=== PATIENT | female | born 1990 | race Caucasian/White ===

== ENCOUNTER 2020-11-13 13:35 | Outpatient (REF) | payer OTHER, SELFPAY ==
[2020-11-14 01:36] LABS: CT PCR NOT DETECTED (Not Detect.); NG PCR NOT DETECTED (Not Detect.)
[2020-11-14 12:06] LABS: BV Int Neg Control Negative (Negative); BV Int Pos Control Positive (Positive)
== END 2020-11-13 13:36 | disposition home or self-care (01) ==
LOC: HO.LAB 13:35
PROVIDERS: Visit Provider Obstetrics & Gynecology
DX: R68.82 Decreased libido (principal); N89.8 Other specified noninflammatory disorders of vagina
CPT/HCPCS: 87480; 87491; 87510; 87591; 87660; 99212

== ENCOUNTER 2021-01-29 19:31 | Outpatient (REF) | payer OTHER, SELFPAY ==
[2021-01-29 21:22] LABS: Influenza A PCR NEGATIVE (Negative); Influenza B PCR NEGATIVE (Negative); Resp Syncy Virus RNA Qual PCR NEGATIVE (Negative); SARS COV2 PCR INHOUSE NEGATIVE (Negative)
== END 2021-01-29 19:32 | disposition home or self-care (01) ==
LOC: HO.LNP 19:31
PROVIDERS: Visit Provider Family Medicine
DX: Z20.822 Contact with and (suspected) exposure to COVID-19 (principal); R05 Cough
CPT/HCPCS: 0241U

== ENCOUNTER 2021-02-09 16:08 | Outpatient (REF) | payer OTHER, SELFPAY ==
--- NOTE | ~2021-02-09 | XR_ITS ---
EXAMINATION: XR CHEST CLINICAL INFORMATION: Cough COMPARISON: December 13, 2018 TECHNIQUE: 2 views of the chest were obtained. FINDINGS: No significant abnormality is noted involving the heart, lungs, mediastinum, bony thorax or soft tissues. XR/XR chest 2V IMPRESSION: No acute disease.
== END 2021-02-09 16:09 | disposition home or self-care (01) ==
LOC: HO.XRAY 16:08
PROVIDERS: Internal Medicine; Absent Provider Internal Medicine; PCP Internal Medicine; Visit Provider Family Medicine
DX: Z20.822 Contact with and (suspected) exposure to COVID-19 (principal); R05 Cough
CPT/HCPCS: 71046; U0003; U0005

== ENCOUNTER 2021-03-26 12:18 | Outpatient (REF) | payer OTHER, SELFPAY | END 2021-03-26 12:19 | disposition home or self-care (01) | LOC: HO.LAB 12:18 | PROVIDERS: Visit Provider Hospitalist | DX: Z20.822 Contact with and (suspected) exposure to COVID-19 (principal); R51.9 Headache, unspecified; R09.81 Nasal congestion; J45.20 Mild intermittent asthma, uncomplicated | CPT/HCPCS: U0003; U0005 ==

== ENCOUNTER 2021-10-03 14:06 | Outpatient (REF) | payer OTHER, SELFPAY ==
[2021-10-04 05:52] LABS: HBS Num1 36.61 mIU/mL (0-7.99); HBc Num1 0.23 S/CO (0.00-0.79); HBsAGNum1 0.22 S/CO (0.00-0.99); HIV AB/AG Nonreactive (Nonreactive); HIV Num 1 0.09 S/CO (0.00-0.99); Hepatitis B Core Antibody Nonreactive (Nonreactive); Hepatitis B Surface Antigen Negative (Negative); ~Hepatitis B Surface Antibody REACTIVE (Nonreactive)
[2021-10-04 05:54] LABS: ~Hepatitis C Antibody Nonreactive (Nonreactive)
[2021-10-04 06:28] LABS: CT PCR NOT DETECTED (Not Detect.); NG PCR NOT DETECTED (Not Detect.)
== END 2021-10-03 14:07 | disposition home or self-care (01) ==
LOC: HO.LAB 14:06
PROVIDERS: PCP Internal Medicine; Visit Provider Hospitalist
DX: Z11.4 Encounter for screening for human immunodeficiency virus [HIV] (principal); Z11.3 Encounter for screening for infections with a predominantly sexual mode of transmission; Z71.1 Person with feared health complaint in whom no diagnosis is made
CPT/HCPCS: 36415; 86704; 86706; 86803; 87086; 87340; 87389; 87491; 87591

== ENCOUNTER 2021-10-09 15:13 | Outpatient (REF) | payer OTHER, SELFPAY ==
[2021-10-09 16:04] LABS: Basophils Percent Auto 0.3 % (0-2); Eosinophils Absolute Auto 0.1 X10*3/uL (0.0-0.4); Hematocrit 41.2 % (37.0-47.0); Hemoglobin 13.6 g/dl (12.0-16.0); Imm Gran Abs Auto 0.03 X10*3/uL (0.00-0.03); Imm Gran Pct Auto 0.4 % (0.0-0.4); Lymphocytes Absolute Auto 2.5 X10*3/uL (1.2-4.9); Lymphocytes Percent Auto 31.8 % (20-40); MANUAL DIFF FLAG NO; Mean Corpuscular Hemoglobin 29.3 pg (27.0-33.0); Mean Corpuscular Volume 88.8 fL (80.0-98.0); Mean Platelet Volume 10.8 fL (9.4-12.3); Monocytes Absolute Auto 0.5 X10*3/uL (0.1-1.2); Monocytes Percent Auto 6.1 % (2-11); Neutrophils Absolute Auto 4.7 x10*3/uL (2.0-8.3); Neutrophils Percent Auto 60.4 % (45-73); Platelet Count 248 X10*3/uL (160-400); Red Blood Count 4.64 X10*6/uL (4.20-5.50); White Blood Count 7.8 X10*3/uL (4.8-10.8)
[2021-10-09 16:42] LABS: Alanine Aminotransferase 13 U/L (0-31); Albumin Level 4.3 g/dL (3.5-5.0); Alkaline Phosphatase 42 U/L (39-117); Anion Gap 11 (12-20); Aspartate Amino Transferase 13 U/L (5-31); Bilirubin Total 1.3 mg/dL (0.0-1.0); Blood Urea Nitrogen 13 mg/dL (9-16); Calcium 9.3 mg/dL (8.4-10.2); Carbon Dioxide 27 mmol/L (22-29); Chloride 105 mmol/L (96-108); Cholesterol 151 mg/dL; Estimated Glomerular Filt Rate > 60; Glucose Fasting 82 mg/dL (60-99); HDL Cholesterol 54 mg/dL; LDL Cholesterol Calculated 83 mg/dl; Potassium 4.3 mmol/L (3.3-5.1); Sodium 139 mmol/L (135-145); Triglycerides 70 mg/dL
[2021-10-09 17:01] LABS: TSH reflex Free T4 1.66 uIU/mL (0.32-4.0)
[2021-10-09 17:06] LABS: Folate 11.7 ng/mL (> or = 4.0); Vitamin B12 489 pg/mL (200-900)
[2021-10-13 16:57] LABS: Vitamin D 25-OH, D2 <4 ng/mL; Vitamin D 25-OH, D3 33 ng/mL; Vitamin D 25-OH, Total 33 ng/mL (30-100)
== END 2021-10-09 15:14 | disposition home or self-care (01) ==
LOC: HO.LAB 15:13
PROVIDERS: PCP Internal Medicine; Visit Provider Internal Medicine
DX: Z00.00 Encounter for general adult medical examination without abnormal findings (principal); E55.9 Vitamin D deficiency, unspecified; E78.5 Hyperlipidemia, unspecified; R53.82 Chronic fatigue, unspecified
CPT/HCPCS: 36415; 80053; 80061; 82306; 82607; 82746; 84443; 85025

== ENCOUNTER 2021-12-18 13:57 | Outpatient (REF) | payer OTHER, SELFPAY | END 2021-12-18 13:58 | disposition home or self-care (01) | LOC: HO.LNP 13:57 | PROVIDERS: Visit Provider Hospitalist | DX: J02.8 Acute pharyngitis due to other specified organisms (principal); B97.89 Other viral agents as the cause of diseases classified elsewhere; Z20.822 Contact with and (suspected) exposure to COVID-19 | CPT/HCPCS: U0003; U0005 ==

== ENCOUNTER 2021-12-25 12:35 | Outpatient (REF) | payer OTHER, SELFPAY ==
--- NOTE | ~2021-12-25 | XR_ITS ---
EXAMINATION: XR CHEST CLINICAL INFORMATION: Chest pain COMPARISON: None TECHNIQUE: 2 views of the chest were obtained. FINDINGS: No significant abnormality is noted involving the heart, lungs, mediastinum, bony thorax or soft tissues. XR/XR chest 2V IMPRESSION: Unremarkable chest examination.
== END 2021-12-25 12:36 | disposition home or self-care (01) ==
LOC: HO.XRAY 12:35
PROVIDERS: PCP Internal Medicine; Visit Provider Family Medicine
DX: R05.9 Cough, unspecified (principal); R07.9 Chest pain, unspecified; R09.89 Other specified symptoms and signs involving the circulatory and respiratory systems
CPT/HCPCS: 71046

== ENCOUNTER 2022-01-02 08:48 | Outpatient (REF) | payer OTHER, SELFPAY ==
--- NOTE | ~2022-01-02 | XR_ITS ---
EXAMINATION: XR CHEST CLINICAL INFORMATION: Upper respiratory infection COMPARISON: December 25, 2021 TECHNIQUE: 2 views of the chest were obtained. FINDINGS: No significant abnormality is noted involving the heart, lungs, mediastinum, bony thorax or soft tissues. XR/XR chest 2V IMPRESSION: No acute disease.
[2022-01-02 11:17] LABS: HBc Num1 0.08 S/CO (0.00-0.79); HIV AB/AG Nonreactive (Nonreactive); HIV Num 1 0.15 S/CO (0.00-0.99); Hepatitis B Core Antibody Nonreactive (Nonreactive); ~HepC Num1 0.21 S/CO (0.00-0.79); ~Hepatitis C Antibody Nonreactive (Nonreactive)
[2022-01-02 11:22] LABS: Syphilis Screen Nonreactive (Nonreactive)
[2022-01-02 14:06] LABS: CT PCR NOT DETECTED (Not Detect.); NG PCR NOT DETECTED (Not Detect.)
[2022-01-03 13:40] LABS: BV Int Neg Control Negative (Negative); BV Int Pos Control Positive (Positive)
[2022-01-09 19:06] LABS: HPV mRNA E6/E7 rflx Not Detected (Not Detected)
== END 2022-01-02 08:49 | disposition home or self-care (01) ==
LOC: HO.LAB 08:48
PROVIDERS: Absent Provider Internal Medicine; PCP Internal Medicine; Visit Provider Advanced Practice Midwife
DX: Z01.419 Encounter for gynecological examination (general) (routine) without abnormal findings (principal); N92.0 Excessive and frequent menstruation with regular cycle; Z11.3 Encounter for screening for infections with a predominantly sexual mode of transmission; Z11.8 Encounter for screening for other infectious and parasitic diseases; Z11.4 Encounter for screening for human immunodeficiency virus [HIV]; Z11.51 Encounter for screening for human papillomavirus (HPV); Z11.59 Encounter for screening for other viral diseases; J06.9 Acute upper respiratory infection, unspecified
CPT/HCPCS: 36415; 71046; 86704; 86780; 86803; 87389; 87480; 87491; 87510; 87591; 87624; 87660; 88142

== ENCOUNTER → 2022-01-24 09:45 | Outpatient (BNVA) | payer OTHER, SELFPAY | PROVIDERS: PCP Internal Medicine; Visit Provider Internal Medicine Pulmonary Disease | DX: R05.3 Chronic cough (principal); J02.9 Acute pharyngitis, unspecified | CPT/HCPCS: 99202 ==

== ENCOUNTER 2022-02-05 12:59 | Outpatient (REF) | payer OTHER, SELFPAY ==
--- NOTE | ~2022-02-05 | US_ITS ---
EXAMINATION: US PELVIS CLINICAL INFORMATION: Excessive and frequent menstruation with regular cycle. COMPARISON: None TECHNIQUE: Ultrasound of the pelvis is performed using both transabdominal and transvaginal transducers along with Doppler. Transvaginal imaging is performed due to inadequate visualization transabdominally. FINDINGS: Uterus: The uterus is anteverted, anteflexed and measures 10.36 cm in length, 5.38 cm in AP and 7.01 cm in transverse dimension. The double wall endometrial thickness is 0.90 cm. The uterus is smooth in contour and has normal myometrial echogenicity. There is a solitary hypoechoic lesion in the mid posterior body of uterus measuring 0.26 x 0.31 x 0.49 cm suggestive of small fibroid. Adnexa: Both ovaries are visualized. There is normal color flow to the adnexa. There is no ovarian torsion. There is no pelvic ascites or fluid collection. Right ovary measures 3.29 x 2.67 x 2.68 cm and volume 12.33 mL. There is anechoic irregular-shaped cyst measuring 1.4 x 1.6 x 1.5 cm. Left ovary measures 2.69 x 1.87 x 2.18 cm, volume 5.74 mL US/US pelvic and transvaginal IMPRESSION: Small uterine fibroid; otherwise, unremarkable uterus and cervix. Small corpus luteal cyst right ovary. There is no free fluid in the cul-de-sac.
== END 2022-02-05 13:00 | disposition home or self-care (01) ==
LOC: HO.HMGCX 12:59
PROVIDERS: PCP Internal Medicine; Visit Provider Advanced Practice Midwife
DX: N92.0 Excessive and frequent menstruation with regular cycle (principal)
CPT/HCPCS: 76830; 76856

== ENCOUNTER → 2022-02-22 13:20 | Outpatient (BNVA) | payer OTHER, SELFPAY | PROVIDERS: PCP Internal Medicine; Visit Provider Advanced Practice Midwife | DX: Z71.2 Person consulting for explanation of examination or test findings (principal); N83.201 Unspecified ovarian cyst, right side; N92.0 Excessive and frequent menstruation with regular cycle; N94.10 Unspecified dyspareunia | CPT/HCPCS: 99212 ==

== ENCOUNTER 2022-02-26 09:30 | Outpatient (REF) | payer OTHER, SELFPAY ==
[2022-02-26 15:14] LABS: CT PCR NOT DETECTED (Not Detect.); NG PCR NOT DETECTED (Not Detect.)
[2022-02-27 13:13] LABS: BV Int Neg Control Negative (Negative); BV Int Pos Control Positive (Positive)
== END 2022-02-26 09:31 | disposition home or self-care (01) ==
LOC: HO.LAB 09:30
PROVIDERS: Visit Provider Advanced Practice Midwife
DX: R10.2 Pelvic and perineal pain (principal); N94.10 Unspecified dyspareunia; Z87.19 Personal history of other diseases of the digestive system
CPT/HCPCS: 87480; 87491; 87510; 87591; 87660; 99212

== ENCOUNTER 2022-03-08 07:53 | Outpatient (REF) | payer OTHER, SELFPAY ==
--- NOTE | ~2022-03-08 | CT_ITS ---
EXAMINATION: CT ABDOMEN AND PELVIS WITH CONTRAST CLINICAL INFORMATION: Unspecified dyspareunia. COMPARISON: None TECHNIQUE: Multidetector volumetric images were obtained from the superior aspect of the liver through the pubic symphysis following administration 85 mL of Omnipaque 350 intravenous contrast. Sagittal and coronal reformatted images were obtained on the technologist's workstation. Oral contrast: No. This CT examination was performed using dose optimization techniques as appropriate, variously including the following: *Automated exposure control *Adjustment of mA and/or kV according to patient size (this includes techniques or standardized protocols for targeted exams where dose is matched to indication/reason for exam; i.e. extremities or head) *Use of iterative reconstruction technique DLP: 268 mGy-cm FINDINGS: LUNG BASES: The visualized lung bases are unremarkable. LIVER, GALLBLADDER, AND BILIARY TREE: The liver is normal in size, shape, and attenuation. No focal hepatic lesion or biliary ductal dilatation is present. The gallbladder is unremarkable with no evidence of radiopaque gallstones, gallbladder wall thickening, or obvious pericholecystic inflammatory changes. PANCREAS: Unremarkable. SPLEEN: Unremarkable. ADRENAL GLANDS: Unremarkable. KIDNEYS AND URETERS: The kidneys are normal in size, shape, and attenuation. No hydronephrosis, hydroureter, or calculi seen. No perinephric stranding. There is a 1.5 cm and a 9 mm hypodense lesion in the upper pole of left kidney measuring 28 Hounsfield units, likely complex cysts. There are 5 mm cysts in the lower pole of left kidney. BLADDER: Unremarkable. GASTROINTESTINAL TRACT: There is scattered stool, gas and oral contrast seen throughout the colon without distention. The small bowel loops are normal caliber. The stomach is nondistended ABDOMINAL WALL: No significant hernia is appreciated. LYMPH NODES: Normal. VASCULAR: Unremarkable. PELVIC VISCERA: The uterus is anteverted. No adnexal mass or free fluid seen. OSSEOUS STRUCTURES: Unremarkable. CT/CT abdomen pelvis w IV con IMPRESSION: No significant abnormality is seen in the abdomen and pelvis. Moderate constipation. Fleischner guidelines were followed.
[2022-03-08] MEDS: iohexoL 350 MG/ML 100 ML INFUS..BTL IV (10:05)
[2022-03-08] MEDS: Barium Sulfate Oral (Berry) 450 ML ORAL.SUSP 900 ML PO (10:07)
== END 2022-03-08 07:54 | disposition home or self-care (01) ==
LOC: HO.CT 07:53
PROVIDERS: Visit Provider Advanced Practice Midwife
DX: R10.2 Pelvic and perineal pain (principal); R10.9 Unspecified abdominal pain; N94.10 Unspecified dyspareunia; Z87.19 Personal history of other diseases of the digestive system
CPT/HCPCS: 74177; Q9967

== ENCOUNTER 2022-03-20 14:52 | Outpatient (REF) | payer OTHER, SELFPAY ==
[2022-03-20 17:40] LABS: Appearance Urine Turbid; Color Urine Yellow; Glucose Urine UA Negative (Negative); Leukocyte Esterase Urine Small (1+) (Negative); Nitrite Urine Negative (Negative); PH 5.5 (5.0-9.0); Specific Gravity - Urine 1.025 (1.005-1.025); UMIC TRIGGER UACC YES; Urine Blood Moderate (2+) (Negative); Urine Ketones Negative (Negative); Urine Protein Negative (Neg-Trace)
[2022-03-20 17:57] LABS: Bacteria Urine 2+ (None Seen); Calcium Oxalate Crystals Urine Present; Hyaline Casts Urine 0-2 /LPF (0-2); UACC Culture Trigger YES
== END 2022-03-20 14:53 | disposition home or self-care (01) ==
LOC: HO.LAB 14:52
PROVIDERS: Advanced Practice Midwife; Visit Provider Nurse Practitioner Family
DX: R35.0 Frequency of micturition (principal); R30.0 Dysuria
CPT/HCPCS: 81001; 87086

== ENCOUNTER 2022-04-03 16:40 | Outpatient (REF) | payer OTHER, SELFPAY ==
--- NOTE | ~2022-04-03 | XR_ITS ---
EXAMINATION: XR LUMBOSACRAL SPINE CLINICAL INFORMATION: Pain COMPARISON: None TECHNIQUE: Three views of the lumbosacral spine. FINDINGS: The vertebral bodies and posterior elements are normal. The disc spaces are preserved and the vertebral alignment is normal. The paraspinal soft tissues are normal. XR/XR lumbar spine 2-3V IMPRESSION: Unremarkable examination.
--- NOTE | ~2022-04-03 | XR_ITS ---
EXAMINATION: BILATERAL HIP X-RAY CLINICAL INFORMATION: Pain COMPARISON: None TECHNIQUE: 2 views of each hip FINDINGS: Right: Bone alignment is normal. No fracture or dislocation is seen. The joint space is normal soft tissues are normal. Left: Bone alignment is normal. No fracture or dislocation is seen. The joint space is normal. Soft tissues are normal. XR/XR hip LT min 2V IMPRESSION: Unremarkable exam.
--- NOTE | ~2022-04-03 | XR_ITS ---
EXAMINATION: BILATERAL HIP X-RAY CLINICAL INFORMATION: Pain COMPARISON: None TECHNIQUE: 2 views of each hip FINDINGS: Right: Bone alignment is normal. No fracture or dislocation is seen. The joint space is normal soft tissues are normal. Left: Bone alignment is normal. No fracture or dislocation is seen. The joint space is normal. Soft tissues are normal. XR/XR hip RT min 2V IMPRESSION: Unremarkable exam.
== END 2022-04-03 16:41 | disposition home or self-care (01) ==
LOC: HO.XRAY 16:40
PROVIDERS: PCP Internal Medicine; Visit Provider Internal Medicine
DX: M25.551 Pain in right hip (principal); M25.552 Pain in left hip; M54.50 Low back pain, unspecified; R39.89 Other symptoms and signs involving the genitourinary system; R31.0 Gross hematuria
CPT/HCPCS: 72100; 73502

== ENCOUNTER 2022-04-16 11:18 | Outpatient (REF) | payer OTHER, SELFPAY ==
--- NOTE | ~2022-04-16 | US_ITS ---
EXAMINATION: US PELVIS CLINICAL INFORMATION: Unspecified ovarian cyst right side, last menstrual period 04/11/2022. COMPARISON: 02/05/2022 TECHNIQUE: Ultrasound of the pelvis is performed using both transabdominal and transvaginal transducers along with Doppler. Transvaginal imaging is performed due to inadequate visualization transabdominally. FINDINGS: The uterus is heterogeneous and measures 11.6 x 4.8 x 7.0 cm. 1.0 x 0.8 x 1.2 cm fibroid. No significant free fluid. Right ovary measures 3.3 x 1.7 x 3.0 cm, volume 8.8 mL. 1.3 x 0.5 x 0.8 cm right ovarian cyst, possibly a corpus luteum. Previous exam demonstrated a 1.4 x 1.6 x 1.5 cm irregularly-shaped right ovarian cyst. Left ovary measures 3.4 x 2.2 x 3.0 cm, volume 11.7 mL. 1.5 x 1.0 x 1.5 cm left ovarian cyst is likely simple and likely physiologic. Small amount of fluid within the endometrial cavity. Endometrial thickness 0.6 cm. Possible endometrial polyp difficult to characterize. US/US pelvic and transvaginal IMPRESSION: A 1.2 cm posterior fibroid was not previously identified. Bilateral ovarian cysts may be physiologic. Small amount of fluid within the endometrial cavity and possible endometrial polyp which was difficult to characterize. Recommend followup ultrasound in 6-8 weeks.
== END 2022-04-16 11:19 | disposition home or self-care (01) ==
LOC: HO.US 11:18
PROVIDERS: Visit Provider Advanced Practice Midwife
DX: N83.201 Unspecified ovarian cyst, right side (principal)
CPT/HCPCS: 76830; 76856

== ENCOUNTER → 2022-05-02 08:59 | Outpatient (BNVA) | payer OTHER, SELFPAY | PROVIDERS: PCP Internal Medicine; Visit Provider Advanced Practice Midwife | DX: Z71.2 Person consulting for explanation of examination or test findings (principal); R10.2 Pelvic and perineal pain; R93.89 Abnormal findings on diagnostic imaging of other specified body structures | CPT/HCPCS: 99212 ==

== ENCOUNTER 2022-06-10 | Outpatient (REF) | payer OTHER, SELFPAY | END 2022-06-10 00:01 | disposition home or self-care (01) | LOC: CF | PROVIDERS: Visit Provider Urology | DX: N28.1 Cyst of kidney, acquired (principal) | CPT/HCPCS: 99202 ==

== ENCOUNTER → 2022-06-27 12:11 | Outpatient (BNVA) | payer OTHER, SELFPAY | PROVIDERS: PCP Internal Medicine; Referring Provider Internal Medicine; Visit Provider Internal Medicine | DX: R00.2 Palpitations (principal); R06.02 Shortness of breath; R20.9 Unspecified disturbances of skin sensation; I10 Essential (primary) hypertension | CPT/HCPCS: 93005; 99202 ==

== ENCOUNTER → 2022-07-16 14:01 | Outpatient (REF) | payer OTHER, SELFPAY ==
--- NOTE | 2022-07-16 14:05 | CA_ITS ---
Transthoracic Echocardiogram Patient (Last, First, Middle): Julieth Alcala L Gender: Female Date of : 1990 Age: 32 Procedure Date: 07/16/2022 Procedure Type: Transthoracic Echocardiogram Location: OP Height: 160.02 cm Weight: 48.99 kg BSA: 1.49 m2 Heart Rate: bpm BP: 122 / 60 mmHg Crude Tester: Referring MD: Mykel Guzman MD Symptoms: R06.02 - Shortness of breath Study Quality: Good ECG Rhythm: Sinus Conclusions: - The left ventricular systolic function is normal. The calculated ejection fraction is 65% by biplane method. - No obvious valvular pathology seen on this study. Findings Left Ventricle Normal left ventricular cavity size. There is normal left ventricular wall thickness. The left ventricular systolic function is normal. The calculated ejection fraction is 65% by biplane method. There is no evidence of regional wall motion abnormalities. Diastolic function is normal for age. Right Ventricle Normal right ventricular cavity size and systolic function. Atria Both atria are normal in size. Aortic Valve There is a normal trileaflet aortic valve. There is no aortic valve regurgitation. Mitral Valve The mitral valve appears normal. There is no mitral valve regurgitation. There is no mitral valve stenosis. Pulmonic Valve The pulmonic valve is likely normal. Tricuspid Valve There is trace tricuspid valve regurgitation. There is no evidence of pulmonary hypertension. Great Vessels The asc aorta is normal in size. Venous The inferior vena cava is normal in size and collapses greater than 50% with inspiration. Pericardium/Pleural There is no evidence of pericardial effusion. Prior Study Comparison No prior study available for comparison. Recommendations, Care & Conclusions No obvious valvular pathology seen on this study. Measurements 2D Linear Measurements IVSd: 0.81 0.6-0.9/0.6-1.0 cm LVIDd: 3.92 3.9-5.3/4.2-5.9 cm LVIDd Index: 2.63 2.4-3.2/2.2-3.1 cm/m2 LVIDs: 2.64 2.0-3.6 cm LVPWd: 0.84 0.7-1.1 cm Ao Root: 2.80 2.1-3.5 cm LA Diam: 2.20 2.7-3.8/3.0-4.0 cm LAIDs Index: 1.48 1.5-2.3 cm/m2 LV Mass: 117.27 67-162/88-224 g LV Mass Index: 78.70 43-95/49-115 g/m2 LVOT Diam: 1.90 3.0+(-)1.3 cm 2D Systolic Function EF 4C: 62.50 >55% EF 2C: 70.30 >55% EF BiP: 64.60 >55% Mitral Valve MV Pk E: 0.92 MV PK A: 0.68 MV Decel Time: 142.00 E/A: 1.30 E'Lateral: 16.20 E'Medial: 12.60 E/E' Med: 7.30 E/E' Lat: 5.70 PHT: 42.00 MVA PHT: 5.24 Decel Baldwin: 6.46 Aortic Valve AoV Pk Suman: 1.38 AoV Mn Suman: 0.90 AoV VTI: 0.28 AoV Pk Grad: 8.00 Aov Mn Grad: 4.00 BONNIE Cont.VTI: 2.11 LVOT LVOT Pk Suman: 0.95 LVOT Mn Suman: 0.64 LVOT VTI: 0.21 LVOT Pk Grad: 4.00 LVOT Mn Grad: 2.00 LVOT Diam: 1.90 LVOT Area: 2.84 Diastolic Function MV Pk E: 0.92 MV Pk A: 0.68 E/A: 1.30 E'Medial: 12.60 E/E' Med: 7.30 E' Laterial: 16.20 E/E' Lat: 5.70 Right Ventricle TAPSE (mm): 19.00 TVS' Suman: 16.00 Tricuspid Valve TR Pk Suman: 2.38 TR Pk Grad: 23.00 Great Vessels Aorta Ao Root-2D: 2.80 2.0-3.7 cm Ao Asc: 2.50 2.1-3.4 cm Pulmonary Valve PV Pk Suman: 1.10 Peak PV Grad: 5.00 Updated in Other Vendor System with Status of Final Mykel Guzman MD electronically signed on 07/17/2022 8:57:29 AM with status of Final
--- NOTE | 2022-07-16 14:05 | HM_ITS ---
* Total monitoring time 3 days. * Underlying rhythm is sinus. Average ventricular rate 93/Min. Range 63 to 145/Min. * About 40% the time, rate > 100/Min. * Occasional PVCs. 2 couplets. Minimal burden. * No significant pauses or AV blocks. * Several symptoms documented include cannot breathe, racing, dizzy, palpitations, numb fingers, cold, tingling, can't take a breath at different times. Mostly correlating with sinus tachycardia. Sometimes with isolated PVCs. MTDD
== END ==
LOC: HO.CARD 14:01
PROVIDERS: Visit Provider Internal Medicine
DX: R06.02 Shortness of breath (principal); R00.2 Palpitations
CPT/HCPCS: 93242; 93306

== ENCOUNTER 2022-07-17 14:51 | Outpatient (REF) | payer OTHER, SELFPAY ==
--- NOTE | ~2022-07-17 | US_ITS ---
EXAMINATION: US RETROPERITONEAL LIMITED (RENAL ONLY) CLINICAL INFORMATION: Essential hypertension. COMPARISON: None. TECHNIQUE: Routine grayscale imaging of kidneys was performed. In addition renal Doppler imaging of both kidneys was performed as well. FINDINGS: RIGHT KIDNEY: 10.3 x 5.8 x 4.7 cm (SAG x AP x TRV). The kidney is normal in size, contour, and echogenicity. Renal cortical thickness is normal. No calculi or focal parenchymal lesions. No hydronephrosis. LEFT KIDNEY: 10.1 x 6.9 x 5.4 cm cm (SAG x AP x TRV). The kidney is normal in size, contour, and echogenicity. Renal cortical thickness is normal. No calculi or focal parenchymal lesions. No hydronephrosis. There are multiple simple anechoic cyst. Upper pole cyst measures 0.8 x 0.8 x 0.1 cm and 0.8 x 0.1 x 0.8 cm. Midpole cyst measures 0.6 x 0.5 x 0.5 cm. RENAL DOPPLER IMAGING: RIGHT KIDNEY: Peak systolic renal velocity proximal segment measures 120 cm/sec, midsegment measures 136 cm/sec, distal segment measures 93.3 cm/sec. Renal aortic ratio measures 1.4. Average resistive index is less than 0.63. LEFT KIDNEY: Peak systolic renal velocity proximal segment measures 128 cm/sec, midsegment measures 10 8 cm/sec and distal segment measures 98.4 cm/sec. Renal aortic ratio measures 1.3. Average resistive index measures 0.60 and less. Mid aorta velocity measures 95.4 cm/sec. US/US renal BI IMPRESSION: Multiple left renal cysts. No echogenic renal calculi or hydronephrosis. There is no significant renal artery stenosis in either kidney seen on renal Doppler exam.
--- NOTE | ~2022-07-17 | US_ITS ---
EXAMINATION: US RETROPERITONEAL LIMITED (RENAL ONLY) CLINICAL INFORMATION: Essential hypertension. COMPARISON: None. TECHNIQUE: Routine grayscale imaging of kidneys was performed. In addition renal Doppler imaging of both kidneys was performed as well. FINDINGS: RIGHT KIDNEY: 10.3 x 5.8 x 4.7 cm (SAG x AP x TRV). The kidney is normal in size, contour, and echogenicity. Renal cortical thickness is normal. No calculi or focal parenchymal lesions. No hydronephrosis. LEFT KIDNEY: 10.1 x 6.9 x 5.4 cm cm (SAG x AP x TRV). The kidney is normal in size, contour, and echogenicity. Renal cortical thickness is normal. No calculi or focal parenchymal lesions. No hydronephrosis. There are multiple simple anechoic cyst. Upper pole cyst measures 0.8 x 0.8 x 0.1 cm and 0.8 x 0.1 x 0.8 cm. Midpole cyst measures 0.6 x 0.5 x 0.5 cm. RENAL DOPPLER IMAGING: RIGHT KIDNEY: Peak systolic renal velocity proximal segment measures 120 cm/sec, midsegment measures 136 cm/sec, distal segment measures 93.3 cm/sec. Renal aortic ratio measures 1.4. Average resistive index is less than 0.63. LEFT KIDNEY: Peak systolic renal velocity proximal segment measures 128 cm/sec, midsegment measures 10 8 cm/sec and distal segment measures 98.4 cm/sec. Renal aortic ratio measures 1.3. Average resistive index measures 0.60 and less. Mid aorta velocity measures 95.4 cm/sec. US/US renal doppler IMPRESSION: Multiple left renal cysts. No echogenic renal calculi or hydronephrosis. There is no significant renal artery stenosis in either kidney seen on renal Doppler exam.
== END 2022-07-17 14:52 | disposition home or self-care (01) ==
LOC: HO.US 14:51
PROVIDERS: PCP Internal Medicine; Visit Provider Internal Medicine
DX: I70.1 Atherosclerosis of renal artery (principal); I10 Essential (primary) hypertension
CPT/HCPCS: 76775; 93975

== ENCOUNTER 2022-07-19 15:41 | Outpatient (REF) | payer OTHER, SELFPAY ==
[2022-07-19 15:58] LABS: MANUAL DIFF FLAG NO
[2022-07-19 17:07] LABS: Basophils Percent Auto 0.1 % (0-2); Eosinophils Percent Auto 0.3 % (0-4); Hematocrit 40.5 % (37.0-47.0); Hemoglobin 13.5 g/dl (12.0-16.0); Imm Gran Pct Auto 1.3 % (0.0-0.4); Mean Corpuscular HGB Conc 33.3 g/dl (31.0-35.0); Mean Corpuscular Hemoglobin 30.3 pg (27.0-33.0); Mean Platelet Volume 10.7 fL (9.4-12.3); Monocytes Absolute Auto 0.5 X10*3/uL (0.1-1.2); Monocytes Percent Auto 6.1 % (2-11); Neutrophils Absolute Auto 5.1 x10*3/uL (2.0-8.3); Neutrophils Percent Auto 66.2 % (45-73); Platelet Count 273 X10*3/uL (160-400); Red Blood Count 4.45 X10*6/uL (4.20-5.50); Red Cell Distribution Width 12.7 % (11.0-16.0); White Blood Count 7.7 X10*3/uL (4.8-10.8)
[2022-07-19 17:21] LABS: Alanine Aminotransferase 13 U/L (0-31); Albumin Level 4.6 g/dL (3.5-5.0); Alkaline Phosphatase 41 U/L (39-117); Anion Gap 13 (12-20); Aspartate Amino Transferase 14 U/L (5-31); Bilirubin Total 1.6 mg/dL (0.0-1.0); Blood Urea Nitrogen 20 mg/dL (9-16); Calcium 9.6 mg/dL (8.4-10.2); Carbon Dioxide 28 mmol/L (22-29); Chloride 103 mmol/L (96-108); Cholesterol 156 mg/dL; Estimated Glomerular Filt Rate > 60; Glucose Fasting 81 mg/dL (60-99); HDL Cholesterol 58 mg/dL; LDL Cholesterol Calculated 89 mg/dl; Sodium 140 mmol/L (135-145); Total Protein 7.3 g/dL (6.5-8.0); Triglycerides 47 mg/dL
[2022-07-19 17:36] LABS: Thyroid Stimulating Hormone 1.84 uIU/mL (0.32-4.0)
== END 2022-07-19 15:42 | disposition home or self-care (01) ==
LOC: HO.LAB 15:41
PROVIDERS: PCP Internal Medicine; Visit Provider Internal Medicine
DX: R00.2 Palpitations (principal); D64.9 Anemia, unspecified; I10 Essential (primary) hypertension; E78.5 Hyperlipidemia, unspecified
CPT/HCPCS: 36415; 80053; 80061; 84443; 85025

== ENCOUNTER 2022-07-23 13:06 | Outpatient (REF) | payer OTHER, SELFPAY ==
--- NOTE | ~2022-07-23 | US_ITS ---
EXAMINATION: US PELVIC AND TRANSVAGINAL CLINICAL INFORMATION: Pelvic pain. Possible endo-polyp. COMPARISON: Ultrasound pelvis and transvaginal 04/16/2022. TECHNIQUE: Ultrasound of the pelvis is performed using both transabdominal and transvaginal transducers along with Doppler. Transvaginal imaging is performed due to inadequate visualization transabdominally. FINDINGS: UTERUS: The uterus is anteverted, anteflexed and measures 10.0 x 4.7 x 5.7 cm. The double wall endometrial thickness is 2.0. No endometrial polyp is seen at this time. The uterus is smooth in contour and has normal myometrial echogenicity. There is a hypoechoic lesion in the posterior body of the uterus measuring 0.9 x 0.8 x 1.1 cm. Previously, it measured 1.0 x 0.8 x 1.2 cm. ADNEXA: Both ovaries are visualized. There is normal color flow to the adnexa. There is no ovarian torsion. There is no pelvic ascites or fluid collection. Right ovary measures 3.3 x 2.1 x 2.6 cm and volume 9.4 mL. There is a faintly visualized isoechoic lesion in the right ovary measuring 1.7 x 1.4 x 1.7 cm. It was faintly visualized but not obvious on the previous exam of 04/16/2022. Left ovary measures 3.4 x 2.0 x 2.2 cm and volume 7.8 mL. Previously, it measured 3.4 x 2.2 x 3.0 cm. Incidental finding of echogenic debris within the bladder. Patient has a history of vaginal bleeding/hematuria one week ago. There is a small amount of free fluid in the anterior uterus and left adnexa. Vascular prominence is seen in the left adnexa, question pelvic congestion. US/US pelvic and transvaginal IMPRESSION: 1. Stable uterine fibroid. 2. Faintly visualized isoechoic lesion in the right ovary. Recommend continued followup. 3. Echogenic debris within the urinary bladder but no bladder wall thickening. 4. Small amount of free fluid in the left adnexa and anterior to the uterus. 5. Suspect left pelvic congestion.
== END 2022-07-23 13:07 | disposition home or self-care (01) ==
LOC: HO.US 13:06
PROVIDERS: PCP Internal Medicine; Visit Provider Advanced Practice Midwife
DX: R10.2 Pelvic and perineal pain (principal); R93.89 Abnormal findings on diagnostic imaging of other specified body structures
CPT/HCPCS: 76830; 76856

== ENCOUNTER 2022-07-30 08:25 | Outpatient (REF) | payer OTHER, SELFPAY | END 2022-07-30 08:26 | disposition home or self-care (01) | LOC: HO.LAB 08:25 | PROVIDERS: PCP Internal Medicine; Visit Provider Advanced Practice Midwife | DX: R10.2 Pelvic and perineal pain (principal); Z71.2 Person consulting for explanation of examination or test findings | CPT/HCPCS: 81003; 99212 ==

== ENCOUNTER 2022-07-30 09:00 | Outpatient (REF) | payer OTHER, SELFPAY ==
[2022-07-31 09:22] LABS: CT PCR NOT DETECTED (Not Detect.); NG PCR NOT DETECTED (Not Detect.)
[2022-07-31 11:31] LABS: BV Int Neg Control Negative (Negative); BV Int Pos Control Positive (Positive)
== END 2022-07-30 09:01 | disposition home or self-care (01) ==
LOC: HO.LNP 09:00
PROVIDERS: Visit Provider Advanced Practice Midwife
DX: Z11.3 Encounter for screening for infections with a predominantly sexual mode of transmission (principal); R10.2 Pelvic and perineal pain; N89.8 Other specified noninflammatory disorders of vagina
CPT/HCPCS: 0353U; 87480; 87510; 87660

== ENCOUNTER 2022-09-03 16:02 | Outpatient (REF) | payer OTHER, SELFPAY ==
[2022-09-03 17:33] LABS: Appearance Urine Clear; Color Urine Yellow; Glucose Urine UA Negative (Negative); Leukocyte Esterase Urine Small (1+) (Negative); Nitrite Urine Negative (Negative); PH 5.5 (5.0-9.0); UMIC TRIGGER UACC YES; Urine Blood Small (1+) (Negative); Urine Ketones Negative (Negative); Urine Protein Negative (Neg-Trace)
[2022-09-03 17:44] LABS: Bacteria Urine None Seen (None Seen); Calcium Oxalate Crystals Urine Present; Hyaline Casts Urine 0-2 /LPF (0-2); Other Crystals Urine Present; RBC Urine 0-2 /HPF (0-2); Squamous Epithelial Cell Urine 0-2 /HPF (0-2); UACC Culture Trigger YES; WBC Urine >50 /HPF (0-5)
== END 2022-09-03 16:03 | disposition home or self-care (01) ==
LOC: HO.LAB 16:02
PROVIDERS: PCP Internal Medicine; Visit Provider Internal Medicine
DX: R30.0 Dysuria (principal)
CPT/HCPCS: 81001; 87086; 87088; 87186

== ENCOUNTER → 2022-09-04 09:17 | Outpatient (BNVA) | payer OTHER, SELFPAY | PROVIDERS: PCP Internal Medicine; Referring Provider Internal Medicine; Visit Provider Internal Medicine | DX: R00.2 Palpitations (principal); R06.02 Shortness of breath; R20.9 Unspecified disturbances of skin sensation; I10 Essential (primary) hypertension | CPT/HCPCS: 99212 ==

== ENCOUNTER 2022-09-23 13:07 | Outpatient (REF) | payer OTHER, SELFPAY ==
--- NOTE | ~2022-09-23 | US_ITS ---
EXAMINATION: US PELVIS CLINICAL INFORMATION: Follow up ovarian cyst. COMPARISON: Ultrasound pelvis 07/23/2022 TECHNIQUE: Ultrasound of the pelvis is performed using both transabdominal and transvaginal transducers along with Doppler. Transvaginal imaging is performed due to inadequate visualization transabdominally. FINDINGS: Uterus: The uterus is anteverted and measures 11.2 x 5.7 x 6.8 cm. The double wall endometrial thickness is 13 mm. The uterus is smooth in contour and has normal myometrial echogenicity. A small uterine fibroid seen unchanged measuring about a centimeter in size. Adnexa: Both ovaries are visualized. There is normal color flow to the adnexa. There is no ovarian torsion. There is no pelvic ascites or fluid collection. Right ovary measures 2.8 x 1.7 x 2.4 cm for a volume of 6.0 mL. Again seen is an area in the right ovary which is hypoechoic. The previously seen faintly visualized isoechoic lesion measuring 1.7 cm now measures 1.3 cm, smaller. This is most likely a complex small cyst. No additional follow-up should be necessary. Left ovary measures 3.1 x 2.3 x 2.9 cm for a volume of 10.8 mL and appears unremarkable. US/US pelvic and transvaginal IMPRESSION: The hypoechoic small mass in the right ovary is smaller as described above. No further follow-up should be necessary. A small uterine fibroid is present. No additional follow-up should be necessary.
== END 2022-09-23 13:08 | disposition home or self-care (01) ==
LOC: HO.US 13:07
PROVIDERS: PCP Internal Medicine; Visit Provider Advanced Practice Midwife
DX: N83.9 Noninflammatory disorder of ovary, fallopian tube and broad ligament, unspecified (principal)
CPT/HCPCS: 76830; 76856

== ENCOUNTER → 2022-09-30 09:44 | Outpatient (BNVA) | payer OTHER, SELFPAY | PROVIDERS: PCP Internal Medicine; Visit Provider Advanced Practice Midwife | DX: Z71.2 Person consulting for explanation of examination or test findings (principal); R10.2 Pelvic and perineal pain; G89.29 Other chronic pain | CPT/HCPCS: 99212 ==

== ENCOUNTER → 2022-11-14 10:09 | Outpatient (BNVA) | payer OTHER, SELFPAY | PROVIDERS: PCP Internal Medicine; Visit Provider Obstetrics & Gynecology | DX: N83.299 Other ovarian cyst, unspecified side (principal); R10.31 Right lower quadrant pain | CPT/HCPCS: 81003; 81025; 99212 ==

== ENCOUNTER 2022-12-13 08:28 | Outpatient (REF) | payer OTHER, SELFPAY ==
--- NOTE | ~2022-12-13 | CT_ITS ---
EXAMINATION: CT ABDOMEN AND PELVIS WITH CONTRAST CLINICAL INFORMATION: Right lower quadrant pain COMPARISON: Previous pelvic ultrasounds most recent September [address] of the abdomen and pelvis from March 2022 TECHNIQUE: Multidetector volumetric images were obtained from the superior aspect of the liver through the pubic symphysis following administration 85 mL of Omnipaque 350 intravenous contrast. Sagittal and coronal reformatted images were obtained on the technologist's workstation. Oral contrast: Yes This CT examination was performed using dose optimization techniques as appropriate, variously including the following: *Automated exposure control *Adjustment of mA and/or kV according to patient size (this includes techniques or standardized protocols for targeted exams where dose is matched to indication/reason for exam; i.e. extremities or head) *Use of iterative reconstruction technique DLP: 244 mGy-cm FINDINGS: LUNG BASES: The visualized lung bases are unremarkable. LIVER, GALLBLADDER, AND BILIARY TREE: The liver is normal in size, shape, and attenuation. No focal hepatic lesion or biliary ductal dilatation is present. The gallbladder is unremarkable with no evidence of radiopaque gallstones, gallbladder wall thickening, or obvious pericholecystic inflammatory changes. PANCREAS: Unremarkable. SPLEEN: Unremarkable. ADRENAL GLANDS: Unremarkable. KIDNEYS AND URETERS: The kidneys are normal in size, shape, and attenuation. No hydronephrosis, hydroureter, or calculi seen. No perinephric stranding. Small bilateral low-attenuation renal lesions probably representing cysts. No imaging follow-up recommended. BLADDER: Unremarkable. GASTROINTESTINAL TRACT: The small and large bowel are unremarkable. The appendix is unremarkable. ABDOMINAL WALL: No significant hernia is appreciated. LYMPH NODES: Normal. VASCULAR: Unremarkable. PELVIC VISCERA: Uterus is anteverted and does not appear enlarged. There is heterogeneous appearance /enhancement of the uterus. There are multiple small low-attenuation subcentimeter areas throughout the myometrium. There is a small 5 mm enhancing lesion exophytic to the uterine fundus questionable for a small fibroid. The pelvic vessels appear prominent. There is reflux in the left ovarian vein. This does not appear particularly dilated. The right ovarian vein is not seen/does not appear to reflux. The endometrium does not appear thickened. The ovaries are normal. Trace fluid in the pelvis. OSSEOUS STRUCTURES: Unremarkable. CT/CT abdomen pelvis w IV con IMPRESSION: Heterogeneous appearance/enhancement of the uterus. Appearance is questionable for adenomyomatosis Probable small fundal uterine fibroid. Prominent pelvic vessels/hypervascular appearance. Trace fluid in the pelvis. Pelvic MRI may be helpful. Fleischner guidelines were followed.
[2022-12-13] MEDS: iohexoL 350 MG/ML 100 ML INFUS..BTL 85 ML IV (09:27)
== END 2022-12-13 08:29 | disposition home or self-care (01) ==
LOC: HO.CT 08:28
PROVIDERS: PCP Internal Medicine; Visit Provider Obstetrics & Gynecology
DX: R10.31 Right lower quadrant pain (principal)
CPT/HCPCS: 74177; Q9967

== ENCOUNTER 2022-12-24 11:29 | Outpatient (REF) | payer OTHER, SELFPAY ==
--- NOTE | ~2022-12-24 | US_ITS ---
EXAMINATION: US PELVIS CLINICAL INFORMATION: Ovarian cyst. LMP 12/20/2022 COMPARISON: 09/23/2022 TECHNIQUE: Ultrasound of the pelvis is performed using both transabdominal and transvaginal transducers along with Doppler. Transvaginal imaging is performed due to inadequate visualization transabdominally. FINDINGS: Uterus: The uterus is anteverted and measures 9.1 x 5.2 x 6.5 cm. Uterine echotexture is heterogeneous. Posterior fibroid measures 1.5 x 1.1 x 1.3 cm. The double wall endometrial thickness is 0.7 mm. Adnexa: Right ovary measures 2.7 x 2.2 x 2.7 cm. Left ovary measures 3.1 x 2.0 x 2.5 cm. Prominent right parametrial veins. Small free fluid in the right adnexa. US/US pelvic and transvaginal IMPRESSION: Posterior uterine fibroid. Prominent right parametrial veins.
== END 2022-12-24 11:30 | disposition home or self-care (01) ==
LOC: HO.US 11:29
PROVIDERS: PCP Internal Medicine; Visit Provider Advanced Practice Midwife
DX: N83.291 Other ovarian cyst, right side (principal)
CPT/HCPCS: 76830; 76856

== ENCOUNTER → 2023-01-01 12:39 | Outpatient (BNVA) | payer OTHER, SELFPAY | PROVIDERS: PCP Internal Medicine; Visit Provider Obstetrics & Gynecology | DX: D25.9 Leiomyoma of uterus, unspecified (principal); R10.31 Right lower quadrant pain; N83.291 Other ovarian cyst, right side | CPT/HCPCS: 99212 ==

== ENCOUNTER 2023-01-21 14:27 | Outpatient (AMB) | payer OTHER, SELFPAY ==
[2023-01-21 14:30] VITALS: BP 142/100; BMI 19.9
--- NOTE | 2023-01-21 14:30 | MHC.PC.OV ---
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 Accompanied by: Self / Same As Patient Allergies No Known Allergies Allergy (Verified 01/21/23 14:38) Medication List - Last Reconciled 01/21/23 by Nathalia Doyle MD albuterol sulfate 90 mcg/actuation (ProAir HFA) 2 puffs inhalation Q4-6H PRN 30 days bupropion HCl 150 mg PO QAM 90 days lisinopril 5 mg PO DAILY 90 days omeprazole 20 mg PO DAILY 30 days Tobacco use date assessed: 07/09/22 Dental Screening Dental Screen Date: 01/21/23 Did you have a dental visit in the last 12 months?: Yes Did you have a dental problem in the last 6 months where you did not have access to dental care?: No Was dental information given to patient?: Patient has dentist HPI HPI Comments History of Present Illness Details This is a 32-year-old female with mild recurrent major depression that comes for her physical exam. Depression stable with bupropion. Last Pap smear was December 2021 and was normal with negative HPV. [facility] Medical History Abdominal pain Anxiety Chronic fatigue Family history of hypertension BISI (generalized anxiety disorder) History of colitis Lesion of right ovary Mild intermittent asthma in adult without complication Mild recurrent major depression Physical exam Pneumonia Vaginal pruritus Surgical History History of surgery History of tubal ligation Family History Father Melanoma Mother Hypertension Alcoholism Maternal Grandfather Stroke Paternal Grandfather No problems noted. Social History Housing: Apartment Alcohol intake: current Alcohol intake frequency: holidays/special occasions only Patient Tobacco Use Status: Never used Tobacco e-Cigarette/Vaping Use: Never Used Second Hand Smoke Exposure: No service: No Current occupational status: employed Current occupational exposures/hazards: No Sexual orientation: Straight/Heterosexual Gender identity: Female Cognitive needs: No Hearing needs: No Vision needs: Yes Female Reproductive History Menstrual Age of Menarche: 9 Questionnaire Thrive Questionnaire Date Thrive assessed: 07/09/22 BISI-7 AMB Questionnaire BISI-7 Date BISI - 7 assessed: 07/09/22 Source: Developed by Drs. Cristian Caputo, Ashley Rock, John Lam and colleagues, with an educational raoul from [facility]. Review of Systems Const All systems reviewed & are unremarkable except as noted in HPI and below Eyes Reports no additional complaints, Denies change in vision and Denies other visual disturbances Card Denies chest pain at rest, Denies chest pain with activity, Denies edema, Denies irregular heart rhythm, Denies claudication, Denies dyspnea, Denies dyspnea on exertion, Denies orthopnea, Denies paroxysmal nocturnal dyspnea and Denies slow heart rate Resp Denies cough, Denies dyspnea and Denies dyspnea on exertion GI Denies abdominal pain, Denies change in bowel habits, Denies excessive flatus, Denies nausea and Denies vomiting Denies urinary incontinence, Denies urinary hesitancy and Denies urinary urgency Musc Denies abnormal gait, Denies atrophy, Denies deformity and Denies limited range of motion Skin/Breast Denies bleeding lesions, Denies changing lesions and Denies rash Neuro Denies abnormal gait and Denies lack of coordination Physical exam (Primary Care) Vital Signs: Last Vital Signs BP 142/100 H 01/21/23 14:30 BMI result Body Mass Index 19.9 Tobacco/Smoking Status: Tobacco use Status Tobacco use date assessed 07/09/22 01/21/23 14:35 Patient Tobacco Use Status Never used Tobacco 01/21/23 14:35 e-Cigarette/Vaping Use Never Used 01/21/23 14:35 Thrive Assessment: Date of Thrive Assessment Date Thrive assessed 07/09/22 01/21/23 14:35 Const Orientation/consciousness: patient oriented x3 HENMT Head: Yes normal to inspection, Yes normocephalic and Yes atraumatic Ears: external ears normal Eyes General: appearance normal, both eyes and all related structures Eyelids: Yes eyelids normal Conjunctivae: conjunctivae normal Neck Neck: Yes normal visual inspection and Yes supple Resp Effort & Inspection: normal respiratory effort Auscultation: clear to auscultation bilaterally Cardio Jugular venous distension: no JVD Rate: regular rate Rhythm: regular rhythm Heart sounds: S1 normal heart sound present and S2 normal heart sound present GI Inspection: Yes normal to inspection Palpation (GI): Soft to palpation and nontender Auscultation: normal bowel sounds Skin General skin exam: no rashes or lesions noted Neuro General: patient oriented x3 and no focal motor deficits Extrem General: Yes full ROM Psych Appearance: grossly normal Assessment and Plan Assessment & Plan (1) Physical exam: Code(s): Z00.00 - Encounter for general adult medical examination without abnormal findings Plan: Repeat in a year. (2) Mild recurrent major depression: Code(s): F33.0 - Major depressive disorder, recurrent, mild Plan: Continue bupropion Coding Level of Care Code Est Pt Prev Care 18-39y(77294) Diagnoses Physical exam Z00.00 Mild recurrent major depression F33.0 Time Spent (min) 31
[2023-01-21 14:44] VITALS: BP 130/80
== END 2023-01-21 14:52 | disposition home or self-care (01) ==
PROVIDERS: Visit Provider Internal Medicine
DX: Z00.00 Encounter for general adult medical examination without abnormal findings (principal); F33.0 Major depressive disorder, recurrent, mild
CPT/HCPCS: 99395

== ENCOUNTER 2023-02-11 11:12 | Outpatient (REF) | payer OTHER, SELFPAY ==
[2023-02-12 12:49] LABS: BV Int Neg Control Negative (Negative); BV Int Pos Control Positive (Positive)
== END 2023-02-11 11:13 | disposition home or self-care (01) ==
LOC: HO.LAB 11:12
PROVIDERS: PCP Internal Medicine; Visit Provider Advanced Practice Midwife
DX: Z01.419 Encounter for gynecological examination (general) (routine) without abnormal findings (principal); R10.30 Lower abdominal pain, unspecified; Z20.2 Contact with and (suspected) exposure to infections with a predominantly sexual mode of transmission
CPT/HCPCS: 87480; 87510; 87660

== ENCOUNTER 2023-02-11 11:12 | Outpatient (AMB) | payer OTHER, SELFPAY ==
--- NOTE | 2023-02-11 11:14 | A.OFFVIS_ITS ---
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 Scribed for ARUN Pate by Susanne Arellano medical bill processor, on 02/11/2023 at 11:32 am EST. School Traffic Supervisor Required: No Information Interpreted: non-clinical & clinical Sales Representative Graphic Art: Sales Representative Graphic Art Present (Tash) Allergies No Known Allergies Allergy (Verified 02/11/23 11:19) Is last menstrual period known: Yes Last menstrual period: 01/20/23 Post menopausal: No Patient : No HPI HPI Comments History of Present Illness Details She is a premenopausal woman presenting for annual exam. She admits to eating healthy and tries to stay active with exercise. Reports a history of right sided lower abdominal pain, seen by PCP in the past. Had CT scan and US. Currently sexually active, reports pain w/intimacy. Regular monthly periods which are heavy 2/5 days. Denies vaginal itching and irritation. Recently treated for BV. STD screening and blood work requested. Denies family hx of breast, colon and ovarian cancer. Last pap smear 01/02/22. [facility] Medical History Abdominal pain Anxiety Chronic fatigue Family history of hypertension BISI (generalized anxiety disorder) History of colitis Lesion of right ovary Lower abdominal pain Mild intermittent asthma in adult without complication Mild recurrent major depression Physical exam Pneumonia Vaginal pruritus Surgical History History of surgery History of tubal ligation Family History Father Melanoma Mother Hypertension Alcoholism Maternal Grandfather Stroke Paternal Grandfather No problems noted. Social History Housing: Apartment Alcohol intake: current Alcohol intake frequency: holidays/special occasions only Patient Tobacco Use Status: Never used Tobacco e-Cigarette/Vaping Use: Never Used Second Hand Smoke Exposure: No service: No Current occupational status: employed Current occupational exposures/hazards: No Sexual orientation: Straight/Heterosexual Gender identity: Female Cognitive needs: No Hearing needs: No Vision needs: Yes Female Reproductive History Menstrual Age of Menarche: 9 Duration of menses: 3-5 days Date of last menstrual period: 01/20/23 control method: permanent sterilization Permanent Sterilization: BTL Total pregnancies: 5 Full term: 2 Number of Living Children: 2 Ab induced: 3 Date of last pap smear: 01/02/22 History of abnormal pap smear: Yes (03/25 + HPV) Physical Exam Vital Signs: Last Vital Signs BP 128/70 02/11/23 11:18 BMI result Body Mass Index 20.6 Const General: cooperative, healthy appearing, no acute distress, well developed and alert Orientation/consciousness: patient oriented x3 HEENT Head: Yes normal to inspection Eyes General: appearance normal, both eyes and all related structures Neck Neck: Yes normal visual inspection Thyroid: Thyroid normal Chest Chest palpation & inspection: normal inspection of the chest Breast/axilla inspection: normal inspection of the breasts (no puckering, dimpling, peau de orange, retraction, discharge, masses) Breast/axilla palpation: normal palpation of the breasts Resp Effort & Inspection: normal respiratory effort GI Other: tender superficially on the right side of over transverse/rectal muscle area, some discomfort with deeper palpation on the lower abdomen. No guarding or rebound. Inspection: Yes normal to inspection Palpation (GI): Soft to palpation (to palpation) Rectal Exam - Female: deferred General: Yes bladder normal to inspection External Female Exam: normal external appearance and normal appearance of the urethra Speculum Exam - Vagina: normal appearance of the vagina, normal palpation and normal vaginal discharge Speculum Exam - Cervix: normal appearance of the cervix and normal palpation Bimanual exam- vagina & uterus: normal palpation and normal palpation Bimanual Exam- Adnexa, other: normal adnexae and no masses Skin General skin exam: no rashes or lesions noted Neuro General: patient oriented x3 Cognition (Neuro): normal cognition Extrem General: Yes normal to inspection Psych Attitude: cooperative Thought process: Normal thought process present Assessment & Plan Assessment & Plan (1) Encounter for well woman exam: Code(s): Z01.419 - Encounter for gynecological examination (general) (routine) without abnormal findings Plan: Discussed: Current recommendations for pap smears per ASCCP guidelines Breast awareness and periodic self breast exams. Maintaining a healthy lifestyle including a well balanced diet and routine exercise. FH of skin cancer, advised to wear sun hats, UV clothing and SPF sunscreen on exposed skin. Has a dermatology ref. for skin eval. All of her questions and concerns were addressed to the best of my ability. RTO in one year for AG. (2) Potential exposure to STD: Code(s): Z20.2 - Contact with and (suspected) exposure to infections with a predominantly sexual mode of transmission Plan: BV testing and GC/CT panel today. STD blood work ordered. Await results and treat accordingly. (3) Lower abdominal pain: Code(s): R10.30 - Lower abdominal pain, unspecified Plan: Recommend consulting with GI specialist-plans to speak w/her PCP for further evaluation. Consider doing yoga for lower abdominal rectus muscle tightness, incl: Cobra pose to stretch the area. Orders: Orders Hepatitis B Core Antibody Today Z20.2 - Contact with and (suspected) exposure to infections with a predominantly sexual mode of transmission Hepatitis C Antibody Today Z20.2 - Contact with and (suspected) exposure to infections with a predominantly sexual mode of transmission HIV Ab/Ag Today Z20.2 - Contact with and (suspected) exposure to infections with a predominantly sexual mode of transmission Syphilis Screen Today Z20.2 - Contact with and (suspected) exposure to infections with a predominantly sexual mode of transmission Bacterial Vaginosis Panel Today Z20.2 - Contact with and (suspected) exposure to infections with a predominantly sexual mode of transmission CT NG by PCR Today Z20.2 - Contact with and (suspected) exposure to infections with a predominantly sexual mode of transmission Pap Smear Today Z01.419 - Encounter for gynecological examination (general) (r outine) without abnormal findings Coding Level of Care Code Est Pt Prev Care 18-39y(81082) Diagnoses Encounter for well woman exam Z01.419 Potential exposure to STD Z20.2 Lower abdominal pain R10.30
[2023-02-11 11:18] VITALS: BP 128/70; BMI 20.6
== END 2023-02-11 13:21 | disposition home or self-care (01) ==
LOC: HO.HWS 11:12
PROVIDERS: PCP Internal Medicine; Visit Provider Advanced Practice Midwife
DX: Z01.419 Encounter for gynecological examination (general) (routine) without abnormal findings (principal); Z20.2 Contact with and (suspected) exposure to infections with a predominantly sexual mode of transmission; R10.30 Lower abdominal pain, unspecified
CPT/HCPCS: 99395

== ENCOUNTER 2023-02-11 11:40 | Outpatient (REF) | payer OTHER, SELFPAY ==
[2023-02-19 04:14] LABS: HPV mRNA E6/E7 rflx Not Detected (Not Detected)
== END 2023-02-11 11:41 | disposition home or self-care (01) ==
LOC: HO.LNP 11:40
PROVIDERS: Visit Provider Advanced Practice Midwife
DX: Z01.419 Encounter for gynecological examination (general) (routine) without abnormal findings (principal); Z20.2 Contact with and (suspected) exposure to infections with a predominantly sexual mode of transmission
CPT/HCPCS: 87624; 88142

== ENCOUNTER 2023-02-11 11:54 | Outpatient (REF) | payer OTHER, SELFPAY ==
[2023-02-11 17:35] LABS: CT PCR NOT DETECTED (Not Detect.); NG PCR NOT DETECTED (Not Detect.)
[2023-02-12 04:03] LABS: Syphilis Screen Nonreactive (Nonreactive)
[2023-02-12 04:31] LABS: HBc Num1 0.11 S/CO (0.00-0.79); HIV AB/AG Nonreactive (Nonreactive); HIV Num 1 0.05 S/CO (0.00-0.99); Hepatitis B Core Antibody Nonreactive (Nonreactive); ~HepC Num1 0.18 S/CO (0.00-0.79); ~Hepatitis C Antibody Nonreactive (Nonreactive)
== END 2023-02-11 11:55 | disposition home or self-care (01) ==
LOC: HO.LAB 11:54
PROVIDERS: PCP Internal Medicine; Visit Provider Advanced Practice Midwife
DX: Z01.419 Encounter for gynecological examination (general) (routine) without abnormal findings (principal); Z20.2 Contact with and (suspected) exposure to infections with a predominantly sexual mode of transmission
CPT/HCPCS: 0353U; 86704; 86780; 86803; 87389

== ENCOUNTER 2023-02-26 10:46 | Outpatient (REF) | payer OTHER, SELFPAY ==
--- NOTE | ~2023-02-26 | US_ITS ---
EXAMINATION: US RETROPERITONEAL LIMITED (RENAL ONLY) CLINICAL INFORMATION: Cyst of kidney, acquired. COMPARISON: CT abdomen and pelvis with contrast 12/13/2022. Ultrasound renal Doppler 07/17/2022. TECHNIQUE: Real-time imaging of the kidneys. FINDINGS: RIGHT KIDNEY: 10.9 x 3.9 x 4.8 cm (SAG x AP x TRV). The kidney is normal in size and contour. There is increased echotexture of medullary pyramids. Renal cortical thickness is normal. No focal parenchymal lesions or hydronephrosis. At the interpolar aspect, a 2 mm nonobstructing calculus is seen. LEFT KIDNEY: 10.1 x 4.4 x 4.1 cm (SAG x AP x TRV). The kidney is normal in size and contour. There is increased echotexture of medullary pyramids. Renal cortical thickness is normal. No renal calculi or hydronephrosis. At the upper pole, 8 mm, 6 mm, 9 mm and 1.0 cm benign, simple cysts are seen. At the interpolar aspect, a 6 mm benign, simple cyst is seen. The lower pole, 1.1 cm and 0.5 cm benign, simple cysts are seen. These require no imaging follow-up. US/US renal BI IMPRESSION: 1. There is increase in echotexture of bilateral medullary pyramids, which can be associated with medullary nephrocalcinosis. 2. A 2 mm nonobstructing right renal calculus is seen.
== END 2023-02-26 10:47 | disposition home or self-care (01) ==
LOC: HO.US 10:46
PROVIDERS: PCP Internal Medicine; Visit Provider Urology
DX: N28.1 Cyst of kidney, acquired (principal)
CPT/HCPCS: 76775

== ENCOUNTER 2023-03-14 11:10 | Outpatient (REF) | payer OTHER, SELFPAY | END 2023-03-14 11:11 | disposition home or self-care (01) | LOC: HO.LAB 11:10 | PROVIDERS: Visit Provider Urology | DX: N20.0 Calculus of kidney (principal); N39.0 Urinary tract infection, site not specified; N28.1 Cyst of kidney, acquired | CPT/HCPCS: 87086; 87088; 87186; 99212 ==

== ENCOUNTER 2023-03-14 11:10 | Outpatient (AMB) | payer OTHER, SELFPAY ==
--- NOTE | 2023-03-14 11:12 | A.OFFVIS_ITS ---
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 03/14/2023? She is followed up today for renal cyst and US results. She was last seen by me on 06/10/2022 for renal cysts. The patient was advised to follow-up in 9 months with renal sono. I reviewed the renal US results from 02/26/2023 revealed that there is increase in echotexture of bilateral medullary pyramids,which can be associated with medullary nephrocalcinosis.? A 2 mm nonobstructing right renal calculus is seen. Patient states that she has had some pain with urination and lower back pain bilaterally for the past couple of weeks. She has urgency and pain with uri nation. Patient states that she had a previous kidney stone about 2007. She denies any allergies to antibiotics. Examination: mild right lower quadrant tenderness; no significant CVA tenderness. Evaluation today?UA? leukocytes: 3 +; blood: 2 +; (patient is on her menses). Review of charts: Last visit: 06/10/2022? Shweta is a 32 year old female here for new patient evaluation for left renal cysts The patient was evaluated for complaints of dyspaurenuria and sent for imaging. The patient denies irritativie voiding symptoms. 03/2022-CT abd/pelvis with IV Contrast wa s reviewed, left renal cysts, HU low (28) Evaluation today U/A trace blood (pt on menses) Discussed? fu with renal sono in 9 months. 03/14/2023: Plan: 24-hour urine collection was ordered, .p rebekahr to follow-up in 3 months. Encouraged the patient to drink adequate amount of fluids. Vitamin B6 100 mg daily was ordered. Prescribed Bactrim DS one tablet BID for 7 days. Flomax 0.4 mg no. 5 tablets were ordered. Follow up in 12 weeks. [facility] Medical History Lower abdominal pain Lesion of right ovary History of colitis Abdominal pain BISI (generalized anxiety disorder) Mild recurrent major depression Vaginal pruritus Physical exam Mild intermittent asthma in adult without complication Pneumonia Family history of hypertension Chronic fatigue Anxiety Surgical History History of surgery History of tubal ligation Family History Father Melanoma Mother Hypertension Alcoholism Maternal Grandfather Stroke Paternal Grandfather No problems noted. Social History Housing: Apartment Alcohol intake: current Alcohol intake frequency: holidays/special occasions only Patient Tobacco Use Status: Never used Tobacco e-Cigarette/Vaping Use: Never Used Second Hand Smoke Exposure: No service: No Current occupational status: employed Current occupational exposures/hazards: No Sexual orientation: Straight/Heterosexual Gender identity: Female Cognitive needs: No Hearing needs: No Vision needs: Yes Female Reproductive History Menstrual Age of Menarche: 9 Review of Systems Const All systems reviewed & are unremarkable except as noted in HPI and below Reports no additional complaints Eyes Reports no additional complaints ENT Reports no additional complaints Card Denies dyspnea Resp Denies cough and Denies dyspnea GI Reports no additional complaints Reports no additional complaints Musc Reports no additional complaints Skin/Breast Denies rash and Denies unusual bruising Neuro Reports no additional complaints Psych Reports no additional complaints Endo Reports no additional complaints Troy/Lymph Reports no additional complaints Aller/Immun Reports no additional complaints Physical Exam Const General: cooperative, healthy appearing and no acute distress Orientation/consciousness: patient oriented x3 HEENT Head: Yes normal to inspection, Yes normocephalic and Yes atraumatic Eyes Conjunctivae: conjunctivae normal Neck Neck: Yes normal visual inspection and Yes trachea midline Chest Chest palpation & inspection: normal inspection of the chest Resp Effort & Inspection: normal respiratory effort Cardio Rate: regular rate GI Inspection: Yes normal to inspection Palpation (GI): Soft to palpation and Tenderness to palpation present (GI) (right) Skin General skin exam: no rashes or lesions noted Neuro General: patient oriented x3 Extrem General: No edema Psych Appearance: grossly normal Results Reviewed Results Reviewed: Date of Service: 02/26/23 EXAMINATION:? US RETROPERITONEAL LIMITED (RENAL ONLY) CLINICAL INFORMATION: Cyst of kidney, acquired. COMPARISON:? CT abdomen and pelvis with contrast 12/13/2022. Ultrasound renal Doppler 07/17/2022. FINDINGS: RIGHT KIDNEY: 10.9 x 3.9 x 4.8 cm (SAG x AP x TRV). The kidney is normal in size and contour. There is increased echotexture of medullary pyramids. Renal cortical thickness is normal. No focal parenchymal lesions or hydronephrosis. At the interpolar aspect, a 2 mm nonobstructing calculus is seen. LEFT KIDNEY: 10.1 x 4.4 x 4.1 cm (SAG x AP x TRV). The kidney is normal in size and contour. There is increased echotexture of medullary pyramids. Renal cortical thickness is normal. No renal calculi or hydronephrosis.? At the upper pole, 8 mm, 6 mm, 9 mm and 1.0 cm benign, simple cysts are seen. At the interpolar aspect, a 6 mm benign, simple cyst is seen. The lower pole, 1.1 cm and 0.5 cm benign, simple cysts are seen. These require no imaging follow-up. IMPRESSION:? ? 1. There is increase in echotexture of bilateral medullary pyramids, which can be associated with medullary nephrocalcinosis. 2. A 2 mm nonobstructing right renal calculus is seen. Assessment & Plan Assessment & Plan (1) Right renal stone: Code(s): N20.0 - Calculus of kidney (2) Renal cyst, acquired, left: Code(s): N28.1 - Cyst of kidney, acquired (3) UTI (urinary tract infection): Code(s): N39.0 - Urinary tract infection, site not specified Plan 24-hour urine collection was ordered, .prior to follow-up in 3 months. Encouraged the patient to drink adequate amount of fluids. Vitamin B6 100 mg daily was ordered. Prescribed Bactrim DS one tablet BID for 7 days. Flomax 0.4 mg no. 5 tablets were ordered. Follow up in 12 weeks. Orders: Orders Urine Culture 03/14/23 N39.0 - Urinary tract infection, site not specified Medications: New sulfamethoxazole-trimethoprim 800-160 mg (Bactrim DS) 1 tab PO BID 14 tabs 0RF tamsulosin (Flomax) Stop medication for symptoms of dizziness 0.4 mg PO BEDTIME 5 caps 0RF to help pass kidney stone pyridoxine (vitamin B6) 100 mg PO DAILY 90 tabs 3RF Patient Instructions: The patient had an opportunity to ask questions regarding treatment plan. All questions were answered. Imaging, Laboratory studies and physical exam results were discussed and reviewed in detail. No major barriers to understanding were identified. The patient expressed understanding and agreement with the above treatment plan.? ? ? The patient is aware they should contact our office by phone for worsening of their current condition or the appearance of new symptoms. Compliance is encouraged with any medications and followup testing that is ordered.? ? ? It is a privilege to be allowed the opportunity to participate in the urologic care of your patient. If you have any questions or concerns regarding treatment for the above conditions please do not hesitate to contact me. The office telephone contact is [phone].? ? ? This note is constructed in part using voice recognition software. While every effort has been made to ensure accuracy rubber molder errors may have been included.? ? ? Yours sincerely,? ? ? Jahaira Goyal MD? Coding Level of Care Code Est Pt Level 4 (51679) Diagnoses Right renal stone N20.0 Renal cyst, acquired, left N28.1 UTI (urinary tract infection) N39.0
== END 2023-03-14 11:36 | disposition home or self-care (01) ==
PROVIDERS: PCP Internal Medicine; Visit Provider Urology
DX: N20.0 Calculus of kidney (principal); N28.1 Cyst of kidney, acquired; N39.0 Urinary tract infection, site not specified
CPT/HCPCS: 99214

== ENCOUNTER 2023-05-06 10:37 | Outpatient (REF) | payer OTHER, SELFPAY | END 2023-05-06 10:38 | disposition home or self-care (01) | LOC: HO.LAB 10:37 | PROVIDERS: PCP Internal Medicine; Visit Provider Advanced Practice Midwife | DX: N89.8 Other specified noninflammatory disorders of vagina (principal) | CPT/HCPCS: 99212 ==

== ENCOUNTER 2023-05-06 10:37 | Outpatient (AMB) | payer OTHER, SELFPAY ==
[2023-05-06 10:40] VITALS: BP 100/60; BMI 20.5
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
== END 2023-05-06 13:25 | disposition home or self-care (01) ==
LOC: HO.HWS 10:38
PROVIDERS: PCP Internal Medicine; Visit Provider Advanced Practice Midwife
DX: N89.8 Other specified noninflammatory disorders of vagina (principal)
CPT/HCPCS: 99213

== ENCOUNTER 2023-05-06 10:59 | Outpatient (REF) | payer OTHER, SELFPAY ==
[2023-05-06 16:11] LABS: CT PCR NOT DETECTED (Not Detect.); NG PCR NOT DETECTED (Not Detect.)
[2023-05-07 11:19] LABS: BV Int Neg Control Negative (Negative); BV Int Pos Control Positive (Positive)
== END 2023-05-06 11:00 | disposition home or self-care (01) ==
LOC: HO.LNP 10:59
PROVIDERS: Visit Provider Advanced Practice Midwife
DX: N89.8 Other specified noninflammatory disorders of vagina (principal); Z20.2 Contact with and (suspected) exposure to infections with a predominantly sexual mode of transmission
CPT/HCPCS: 0353U; 87480; 87510; 87660

== ENCOUNTER 2023-07-22 15:11 | Outpatient (AMB) | payer OTHER, SELFPAY ==
[2023-07-22 15:13] VITALS: BP 122/86; BMI 18.7
--- NOTE | 2023-07-22 15:13 | A.OFFVIS_ITS ---
Intake Vital Signs 07/22/23 15:13 Height 5 ft 2 in Weight 102 lb BMI 18.7 BP 122/86 Intake Visit Reasons: Vaginal discharge Intake Note: wants std testing Core Carrier: Core Carrier Present (Tash) Allergies No Known Allergies Allergy (Verified 07/22/23 15:13) Is last menstrual period known: Yes Last menstrual period: 07/04/23 HPI HPI Comments History of Present Illness Details Patient is here with today with complaints of vaginal discharge and odor. Recent break-up with partner once all STD testing. She denies any fever flu-like symptoms flank pain. She admits to frequency of urination. Admits to coffee drinking. Last menses came a few days late otherwise her cycles are normal. [facility] Medical History Lower abdominal pain Lesion of right ovary History of colitis Abdominal pain BISI (generalized anxiety disorder) Mild recurrent major depression Vaginal pruritus Physical exam Mild intermittent asthma in adult without complication Pneumonia Family history of hypertension Chronic fatigue Anxiety Surgical History History of surgery History of tubal ligation Family History Father Melanoma Mother Hypertension Alcoholism Maternal Grandfather Stroke Paternal Grandfather No problems noted. Social History Housing: Apartment Alcohol intake: current Alcohol intake frequency: holidays/special occasions only Patient Tobacco Use Status: Never used Tobacco e-Cigarette/Vaping Use: Never Used Second Hand Smoke Exposure: No service: No Current occupational status: employed Current occupational exposures/hazards: No Sexual orientation: Straight/Heterosexual Gender identity: Female Cognitive needs: No Hearing needs: No Vision needs: Yes Female Reproductive History Menstrual Age of Menarche: 9 Date of last menstrual period: 07/04/23 Review of Systems Const All systems reviewed & are unremarkable except as noted in HPI and below Physical Exam Vital Signs: Last Vital Signs BP 122/86 07/22/23 15:13 BMI result Body Mass Index 18.7 Const General: cooperative, healthy appearing and no acute distress Orientation/consciousness: patient oriented x3 GI Inspection: Yes normal to inspection Palpation (GI): Soft to palpation and Other GI palpation findings present (Nontender) Rectal Exam - Female: visual inspection normal General: Yes bladder normal to palpation External Female Exam: normal appearance of the urethra Speculum Exam - Vagina: normal appearance of the vagina, normal palpation and normal vaginal discharge Speculum Exam - Cervix: normal appearance of the cervix and normal palpation Bimanual exam- vagina & uterus: normal bimanual exam, normal palpation, uterine size normal, bladder normal to palpation, normal palpation, uterine shape normal and non-tender Bimanual Exam- Adnexa, other: normal adnexae Neuro General: patient oriented x3 Results AMB Urinalysis, Automated UA Leukoctes 0 Jocelin/uL Last Edit by Jenn Tamayo [facility] on 07/22/23 15:37 UA Nitrite Positive Last Edit by Jenn Tamayo [facility] on 07/22/23 15:37 UA Urobilinogen 0 mg/dL Last Edit by Jenn Tamayo [facility] on 07/22/23 15:3 7 UA Protein 0 mg/dL Last Edit by Jenn Tamayo [facility] on 07/22/23 15:37 UA pH 7.0 Last Edit by Jenn Tamayo [facility] on 07/22/23 15:37 UA Blood 0 Keshav/uL Last Edit by Jenn Tamayo [facility] on 07/22/23 15:37 UA Specific [place] 1.015 Last Edit by Jenn Tamayo [facility] on 07/22/23 15:37 UA Ketone Negative Last Edit by Jenn Tamayo [facility] on 07/22/23 15:37 UA Bilirubin 0 mg/dL Last Edit by Jenn Tamayo [facility] on 07/22/23 15:37 UA Glucose 0 mg/dL Last Edit by Jenn Tamayo [facility] on 07/22/23 15:37 Assessment & Plan Assessment & Plan (1) Vaginal discharge: Code(s): N89.8 - Other specified noninflammatory disorders of vagina (2) Vaginal odor: Code(s): N89.8 - Other specified noninflammatory disorders of vagina (3) Possible exposure to STD: Code(s): Z20.2 - Contact with and (suspected) exposure to infections with a predominantly sexual mode of transmission (4) UTI (urinary tract infection): Code(s): N39.0 - Urinary tract infection, site not specified Plan STD testing cultures and blood work today Condoms for prevention of STDs. Return to the office as needed or for annual as scheduled. Advised to limit caffeine intake and hydrate with water mostly. All of her questions and concerns were addressed to the best of my ability. Discussed; Increase hydration, mostly water. Limit caffeine to one cup a day or eliminate altogether. Avoid carbonated, sugary or artificial sweetened beverages. Always clean and wipe from front to back. Empty your bladder often and when the urge. Urinate after intimacy. Take as directed and complete any medications that may be ordered. Report to the ED immediately if any fever >100.4, flu like symptoms, lightheadedness, dizziness, significant flank pain This note is constructed using voice recognition software. While every effort has been made to ensure accuracy, drip box tender errors may have been included. Orders: Orders HIV Ab/Ag Today Z20.2 - Contact with and (suspected) exposure to infections with a predominantly sexual mode of transmission Hepatitis B Core Antibody Today Z20.2 - Contact with and (suspected) exposure to infections with a predominantly sexual mode of transmission CT NG by PCR Today N89.8 - Other specified noninflammatory disorders of vagina AMB Urinalysis Automated Today R35.0 - Frequency of micturition Urine Culture Today R35.0 - Frequency of micturition Hepatitis C Antibody Today Z20.2 - Contact with and (suspected) exposure to infections with a predominantly sexual mode of transmission Syphilis Screen Today Z20.2 - Contact with and (suspected) exposure to infections with a predominantly sexual mode of transmission Bacterial Vaginosis Panel Today N89.8 - Other specified noninflammatory disorders of vagina Medications: New nitrofurantoin monohyd/m-cryst 100 mg (Macrobid) must administer with a meal/food 100 mg PO BID 10 caps 0RF UTI 5 days Coding Level of Care Code Est Pt Level 4 (87905) Diagnoses Vaginal discharge N89.8 Vaginal odor N89.8 Possible exposure to STD Z20.2 UTI (urinary tract infection) N39.0
== END 2023-07-22 15:42 | disposition home or self-care (01) ==
LOC: HO.HWS 15:11
PROVIDERS: PCP Internal Medicine; Visit Provider Advanced Practice Midwife
DX: N89.8 Other specified noninflammatory disorders of vagina (principal); Z20.2 Contact with and (suspected) exposure to infections with a predominantly sexual mode of transmission; N39.0 Urinary tract infection, site not specified; R35.0 Frequency of micturition
CPT/HCPCS: 99214

== ENCOUNTER 2023-07-22 15:11 | Outpatient (REF) | payer OTHER, SELFPAY | END 2023-07-22 15:12 | disposition home or self-care (01) | LOC: HO.LNP 15:11 | PROVIDERS: PCP Internal Medicine; Visit Provider Advanced Practice Midwife | DX: N89.8 Other specified noninflammatory disorders of vagina (principal); N39.0 Urinary tract infection, site not specified; Z20.2 Contact with and (suspected) exposure to infections with a predominantly sexual mode of transmission | CPT/HCPCS: 81003; 99212 ==

== ENCOUNTER 2023-07-22 15:26 | Outpatient (REF) | payer OTHER, SELFPAY ==
[2023-07-22 16:49] LABS: Appearance Urine Turbid; Color Urine Yellow; Glucose Urine UA Negative (Negative); Leukocyte Esterase Urine Trace (Negative); Nitrite Urine Positive (Negative); UMIC TRIGGER UACC YES; Urine Blood Negative (Negative); Urine Ketones Negative (Negative); Urine Protein Negative (Neg-Trace)
[2023-07-22 16:54] LABS: Bacteria Urine 4+ (None Seen); Hyaline Casts Urine 0-2 /LPF (0-2); RBC Urine 0-2 /HPF (0-2); UACC Culture Trigger YES
[2023-07-22 18:27] LABS: CT PCR NOT DETECTED (Not Detect.); NG PCR NOT DETECTED (Not Detect.)
[2023-07-23 08:21] LABS: HBc Num1 0.12 S/CO (0.00-0.79); HIV AB/AG Nonreactive (Nonreactive); HIV Num 1 0.05 S/CO (0.00-0.99); Hepatitis B Core Antibody Nonreactive (Nonreactive); ~HepC Num1 0.25 S/CO (0.00-0.79); ~Hepatitis C Antibody Nonreactive (Nonreactive)
[2023-07-23 08:22] LABS: Syphilis Screen Nonreactive (Nonreactive)
[2023-07-23 13:23] LABS: BV Int Neg Control Negative (Negative); BV Int Pos Control Positive (Positive)
== END 2023-07-22 15:27 | disposition home or self-care (01) ==
LOC: HO.LAB 15:26
PROVIDERS: PCP Internal Medicine; Visit Provider Advanced Practice Midwife
DX: Z11.4 Encounter for screening for human immunodeficiency virus [HIV] (principal); Z20.2 Contact with and (suspected) exposure to infections with a predominantly sexual mode of transmission; N89.8 Other specified noninflammatory disorders of vagina; R30.0 Dysuria
CPT/HCPCS: 0353U; 81001; 86704; 86780; 86803; 87086; 87088; 87186; 87389; 87480; 87510; 87660

== ENCOUNTER 2023-07-22 16:05 | Outpatient (AMB) | payer OTHER, SELFPAY ==
[2023-07-22 16:30] VITALS: BP 132/80; BMI 18.1
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
== END 2023-07-22 16:57 | disposition home or self-care (01) ==
PROVIDERS: PCP Internal Medicine; Visit Provider Internal Medicine
DX: F33.0 Major depressive disorder, recurrent, mild (principal); I10 Essential (primary) hypertension; K21.9 Gastro-esophageal reflux disease without esophagitis; F41.1 Generalized anxiety disorder
CPT/HCPCS: 96127; 99214

== ENCOUNTER 2023-11-25 13:43 | Outpatient (AMB) | payer OTHER, SELFPAY ==
[2023-11-25 13:47] VITALS: BP 112/62; BMI 19.5
--- NOTE | 2023-11-25 13:47 | MHC.OFFVIS ---
Vital Signs 11/25/23 13:47 Height 5 ft 3 in Weight 110 lb BMI 19.5 BP 112/62 Intake Visit Reasons: std testing Bioprocess Engineer Required: No Information Interpreted: clinical only Glass Mould Cleaner: Glass Mould Cleaner Present Allergies No Known Allergies Allergy (Verified 11/25/23 13:47) Medication List - Last Reconciled 11/25/23 by Shahrzad Olivarez CNM albuterol sulfate 90 mcg/actuation (ProAir HFA) 2 puffs inhalation Q4-6H PRN 30 days lisinopril 5 mg PO DAILY 90 days nitrofurantoin monohyd/m-cryst 100 mg (Macrobid) 100 mg PO BID 5 days omeprazole 20 mg PO DAILY 30 days pyridoxine (vitamin B6) 100 mg PO DAILY sertraline 25 mg PO DAILY 90 days sulfamethoxazole-trimethoprim 800-160 mg (Bactrim DS) 1 tab PO BID 3 days tamsulosin (Flomax) 0.4 mg PO BEDTIME Is last menstrual period known: Yes Last menstrual period: 10/22/23 Do you need a note to return to daycare/school/sports/work: No HPI HPI std testing: Details: Patient is here for STD checks she has a new partner and just wants to get checked she thought she had a lot of discharge she thinks she is due for. In about a week or so she actually does not keep track of her cycles so much as she keeps track of her 16-year-old daughters. She had her tubes tied so she does not need to worry about control she had an STD check in July and everything was fine. [facility] Medical History Lower abdominal pain Lesion of right ovary History of colitis Abdominal pain BISI (generalized anxiety disorder) Mild recurrent major depression Vaginal pruritus Physical exam Mild intermittent asthma in adult without complication Pneumonia Family history of hypertension Chronic fatigue Anxiety Surgical History History of mandibular surgery History of surgery History of tubal ligation Family History Father Melanoma Mother Hypertension Alcoholism Maternal Grandfather Stroke Paternal Grandfather No problems noted. Social History (Reviewed 11/25/23 @ 13:48 by Barbra Farfan CMAEvelia Housing: Other Alcohol intake: current Alcohol intake frequency: holidays/special occasions only Patient Tobacco Use Status: Never used Tobacco e-Cigarette/Vaping Use: Never Used Second Hand Smoke Exposure: No service: No Current occupational status: employed Current occupational exposures/hazards: No Sexual orientation: Straight/Heterosexual Gender identity: Female Cognitive needs: No Hearing needs: No Vision needs: Yes Female Reproductive History Menstrual Age of Menarche: 9 Duration of menses: 3-5 days Date of last menstrual period: 10/22/23 control method: permanent sterilization Total pregnancies: 2 Full term: 2 Date of last pap smear: 02/13/23 (negative, 2021,wnl) Physical Exam Vital Signs: Last Vital Signs BP 112/62 11/25/23 13:47 BMI result Body Mass Index 19.5 Other: In normal cervix multiparous markedly posterior clear to white abundant healthy appearing mucus consistent with recent ovulation. Uterus small midposition mobile nontender adnexa nontender very good tone with. External Female Exam: normal external appearance Speculum Exam - Vagina: normal appearance of the vagina and normal vaginal discharge Speculum Exam - Cervix: normal appearance of the cervix Bimanual exam- vagina & uterus: normal bimanual exam, uterine size normal, consistency normal, uterine mobility normal, uterine shape normal and non-tender Bimanual Exam- Adnexa, other: normal adnexae, no masses and No adnexal tenderness Assessment & Plan Assessment & Plan (1) Encounter for screening examination for sexually transmitted disease: Code(s): Z11.3 - Encounter for screening for infections with a predominantly sexual mode of transmission Category: Medical Plan Testing done during the exam for gonorrhea chlamydia trichomoniasis Gardnerella and Tana her discharge appears completely within normal limits possibly consistent with recently having ovulated. Her exam was completely benign. Discussed whether not she wanted to get tested for HIV hep B hep C and syphilis she thinks she might but she might get the labs done at the hospital. Her only other health concern is that her blood pressure can often be up she is on lisinopril discussed all the stressors in life and parenting that can contribute to high blood pressure. She has a schedule on the books for her exam coming up the summer. RTC p.r.n. safer sex discussed. Orders: Orders HIV Ab/Ag Today Z11.3 - Encounter for screening for infections with a predominantly sexual mode of transmission Syphilis Screen Today Z11.3 - Encounter for screening for infections with a predominantly sexual mode of transmission CT NG by PCR Today Z01.419 - Encounter for gynecological examination (general) (routine) without abnormal findings Bacterial Vaginosis Panel Today Z20.2 - Contact with and (suspected) exposure to infections with a predominantly sexual mode of transmission Hepatitis B Surface Antigen Today Z11.3 - Encounter for screening for infections with a predominantly sexual mode of transmission Hepatitis C Antibody Today Z11.3 - Encounter for screening for infections with a predominantly sexual mode of transmission Coding Level of Care Code Est Pt Level 3 (71820) Diagnoses Encounter for screening examination for sexually transmitted disease Z11.3
== END 2023-11-25 14:41 | disposition home or self-care (01) ==
PROVIDERS: PCP Internal Medicine; Visit Provider Advanced Practice Midwife
DX: Z11.3 Encounter for screening for infections with a predominantly sexual mode of transmission (principal)
CPT/HCPCS: 99213

== ENCOUNTER 2023-11-25 13:43 | Outpatient (REF) | payer OTHER, SELFPAY ==
[2023-11-26 09:34] LABS: CT PCR NOT DETECTED (Not Detect.); NG PCR NOT DETECTED (Not Detect.)
[2023-11-26 10:24] LABS: Bacterial Vaginosis PCR NEGATIVE (Negative); Candida Group PCR DETECTED (Not Detect); Candida glab krusei PCR NOT DETECTED (Not Detect); Trichomonas vaginalis PCR NOT DETECTED (Not Detect)
== END 2023-11-25 13:44 | disposition home or self-care (01) ==
LOC: HO.LAB 13:43
PROVIDERS: PCP Internal Medicine; Visit Provider Advanced Practice Midwife
DX: Z01.419 Encounter for gynecological examination (general) (routine) without abnormal findings (principal); N89.8 Other specified noninflammatory disorders of vagina; Z20.2 Contact with and (suspected) exposure to infections with a predominantly sexual mode of transmission
CPT/HCPCS: 0352U; 0353U; 99212

== ENCOUNTER 2023-11-27 12:54 | Outpatient (REF) | payer OTHER, SELFPAY ==
[2023-11-28 04:28] LABS: Syphilis Screen Nonreactive (Nonreactive)
[2023-11-28 04:45] LABS: HBsAGNum1 0.35 S/CO (0.00-0.99); HIV AB/AG Nonreactive (Nonreactive); HIV Num 1 0.06 S/CO (0.00-0.99); Hepatitis B Surface Antigen Negative (Negative); ~HepC Num1 0.27 S/CO (0.00-0.79); ~Hepatitis C Antibody Nonreactive (Nonreactive)
== END 2023-11-27 12:55 | disposition home or self-care (01) ==
LOC: HO.LAB 12:54
PROVIDERS: PCP Internal Medicine; Visit Provider Advanced Practice Midwife
DX: Z11.3 Encounter for screening for infections with a predominantly sexual mode of transmission (principal)
CPT/HCPCS: 36415; 86780; 86803; 87340; 87389

== ENCOUNTER 2024-05-19 09:48 | Outpatient (REF) | payer OTHER, SELFPAY ==
[2024-05-19 11:56] LABS: Hematocrit 42.3 % (37.0-47.0); Hemoglobin 13.4 g/dl (12.0-16.0); Mean Corpuscular HGB Conc 31.7 g/dl (31.0-35.0); Mean Corpuscular Hemoglobin 27.7 pg (27.0-33.0); Mean Corpuscular Volume 87.4 fL (80.0-98.0); Mean Platelet Volume 10.3 fL (9.4-12.3); Platelet Count 305 X10*3/uL (160-400); Red Blood Count 4.84 X10*6/uL (4.20-5.50); Red Cell Distribution Width 14.6 % (11.0-16.0); White Blood Count 7.8 X10*3/uL (4.8-10.8)
[2024-05-19 12:41] LABS: Thyroid Stimulating Hormone 2.37 uIU/mL (0.32-4.0)
[2024-05-19 12:43] LABS: Syphilis Screen Nonreactive (Nonreactive)
[2024-05-19 12:44] LABS: HIV AB/AG Nonreactive (Nonreactive); HIV Num 1 0.07 S/CO (0.00-0.99); Hepatitis B Core Antibody Nonreactive (Nonreactive); ~Hepatitis C Antibody Nonreactive (Nonreactive)
[2024-05-20 03:51] LABS: CT PCR NOT DETECTED (Not Detect.); NG PCR NOT DETECTED (Not Detect.)
[2024-05-20 12:03] LABS: Bacterial Vaginosis PCR NEGATIVE (Negative); Candida Group PCR DETECTED (Not Detect); Candida glab krusei PCR NOT DETECTED (Not Detect); Trichomonas vaginalis PCR NOT DETECTED (Not Detect)
== END 2024-05-19 09:49 | disposition home or self-care (01) ==
LOC: HO.LNP 09:48
PROVIDERS: PCP Internal Medicine; Visit Provider Advanced Practice Midwife
DX: Z01.419 Encounter for gynecological examination (general) (routine) without abnormal findings (principal); N93.9 Abnormal uterine and vaginal bleeding, unspecified; Z11.3 Encounter for screening for infections with a predominantly sexual mode of transmission; D25.9 Leiomyoma of uterus, unspecified; N92.1 Excessive and frequent menstruation with irregular cycle; Z20.2 Contact with and (suspected) exposure to infections with a predominantly sexual mode of transmission; N89.8 Other specified noninflammatory disorders of vagina
CPT/HCPCS: 0352U; 84443; 85027; 86704; 86780; 86803; 87389; 87491; 87591

== ENCOUNTER 2024-05-19 09:48 | Outpatient (AMB) | payer OTHER, SELFPAY ==
[2024-05-19 10:02] VITALS: BP 130/78; BMI 20.2
--- NOTE | 2024-05-19 10:02 | A.OFFVIS_ITS ---
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 Intake Note: desires cultures C/O left breast lump Tomb Maker Helper Required: No Allergies No Known Allergies Allergy (Verified 05/19/24 10:05) Medication List - Last Reconciled 05/19/24 by Stella Cortez LPN albuterol sulfate 90 mcg/actuation (ProAir HFA) 2 puffs inhalation Q4-6H PRN 30 days lisinopril 5 mg PO DAILY 90 days tamsulosin (Flomax) 0.4 mg PO BEDTIME Is last menstrual period known: Yes Last menstrual period: 04/22/24 Post menopausal: No Patient : No Do you need a note to return to daycare/school/sports/work: Yes HPI Comments Details: She is a premenopausal woman presenting for annual examination. Doing well with concerns: Recently seen in the [facility] ED for breast pain and swelling was told she had a small abscess and placed on antibiotics. She did not attend the breast imaging at [facility] due to work scheduling-no records available today. She reports the pain has resolved, she cannot feel the lump today. She reports external itching, discharge, and slight odor for a few days, she thinks it is BV again. Regular monthly menses. HMB 3/7d for the last 2 yrs. History of tubal ligation. Currently is sexually active new partner. STI screening offered; she accepts. She tries to eat healthy and stays active with exercise. Denies family history of breast, ovarian or colon cancer. Last pap smear 2022, negative. [facility] Medical History Lower abdominal pain Lesion of right ovary History of colitis Abdominal pain BISI (generalized anxiety disorder) Mild recurrent major depression Vaginal pruritus Physical exam Mild intermittent asthma in adult without complication Pneumonia Family history of hypertension Chronic fatigue Anxiety Surgical History History of mandibular surgery History of surgery History of tubal ligation Family History Father Melanoma Mother Hypertension Alcoholism Maternal Grandfather Stroke Paternal Grandfather No problems noted. Social History Housing: Other Alcohol intake: current Alcohol intake frequency: holidays/special occasions only Patient Tobacco Use Status: Never used Tobacco e-Cigarette/Vaping Use: Never Used Second Hand Smoke Exposure: No service: No Current occupational status: employed Current occupational exposures/hazards: No Sexual orientation: Straight/Heterosexual Gender identity: Female Cognitive needs: No Hearing needs: No Vision needs: Yes Female Reproductive History Menstrual Age of Menarche: 9 Duration of menses: 3-5 days Date of last menstrual period: 04/22/24 control method: permanent sterilization Total pregnancies: 4 Full term: 2 Number of Living Children: 2 Ab induced: 2 Date of last pap smear: 02/13/23 History of abnormal pap smear: Yes History of STI: Yes Review of Systems Const All systems reviewed & are unremarkable except as noted in HPI and below Reports as per HPI Eyes Reports no additional complaints ENT Reports no additional complaints Card Reports no additional complaints Resp Reports no additional complaints GI Reports as per HPI and Reports no additional complaints Reports as per HPI Musc Reports no additional complaints Skin/Breast Reports as per HPI Neuro Reports no additional complaints Psych Reports no additional complaints Endo Reports no additional complaints Troy/Lymph Reports no additional complaints Aller/Immun Reports no additional complaints Physical Exam Vital Signs: Last Vital Signs BP 130/78 05/19/24 10:02 BMI result Body Mass Index 20.2 Const General: cooperative, healthy appearing, no acute distress, well developed and alert Orientation/consciousness: patient oriented x3 HEENT Head: Yes normal to inspection Eyes General: appearance normal, both eyes and all related structures Neck Neck: Yes normal visual inspection Thyroid: Thyroid normal Chest Other: Left nipple inversion-patient reports since developed. Chest palpation & inspection: normal inspection of the chest and other (no puckering, dimpling, peau de orange, retraction, discharge, masses) Breast/axilla inspection: normal inspection of the breasts Breast/axilla palpation: normal palpation of the breasts Resp Effort & Inspection: normal respiratory effort GI Inspection: Yes normal to inspection Palpation (GI): Soft to palpation Rectal Exam - Female: deferred General: Yes bladder normal to palpation External Female Exam: normal external appearance and normal appearance of the urethra Speculum Exam - Vagina: normal appearance of the vagina, normal palpation and abnormal vaginal discharge (Heavy thick white) Speculum Exam - Cervix: normal appearance of the cervix and normal palpation Bimanual exam- vagina & uterus: normal bimanual exam, normal palpation, uterine size normal, bladder normal to palpation, normal palpation and non-tender Bimanual Exam- Adnexa, other: no masses Skin General skin exam: no rashes or lesions noted Rashes: no rashes Neuro General: patient oriented x3 Cognition (Neuro): normal cognition Extrem General: Yes normal to inspection Psych Attitude: cooperative Thought process: Normal thought process present Assessment & Plan Assessment & Plan (1) Encounter for well woman exam with routine gynecological exam: Code(s): Z01.419 - Encounter for gynecological examination (general) (routine) without abnormal findings Category: Medical (2) Encounter for screening examination for sexually transmitted disease: Code(s): Z11.3 - Encounter for screening for infections with a predominantly sexual mode of transmission Category: Medical (3) Uterine myoma: Code(s): D25.9 - Leiomyoma of uterus, unspecified Category: Medical Qualifiers: Uterine leiomyoma location: unspecified location Qualified Code(s): D25.9 - Leiomyoma of uterus, unspecified (4) Vaginal discharge: Code(s): N89.8 - Other specified noninflammatory disorders of vagina (5) Breast pain: Code(s): N64.4 - Mastodynia (6) Possible exposure to STD: Code(s): Z20.2 - Contact with and (suspected) exposure to infections with a predominantly sexual mode of transmission Plan Discussed: Current recommendations for pap smears per ASCCP guidelines. Breast awareness and periodic breast exams. Maintain a healthy lifestyle including a well balanced diet and routine exercise. Use condoms for STI and prevention. GC chlamydia and BV panel obtained await results for plan of care. Workup for AUB to include pelvic ultrasound, blood work, plan to follow up in person for test results and plan of care. Report any heavier prolonged bleeding episodes. Sign a release of records for [facility] for ED visit re: breast pain. Patient verbalizes understanding and agrees to the plan of care. She was given opportunity to ask questions and all questions were answered to the best of my ability. RTO in one year for annual safety and health consultant examination. This note is constructed using voice recognition software. While every effort has been made to ensure accuracy, loss prevention lead errors may have been included. Orders: Orders Hepatitis B Core Antibody Today Z20.2 - Contact with and (suspected) exposure to infections with a predominantly sexual mode of transmission Syphilis Screen Today Z20.2 - Contact with and (suspected) exposure to infections with a predominantly sexual mode of transmission Bacterial Vaginosis Panel Today Z11.3 - Encounter for screening for infections with a predominantly sexual mode of transmission Complete Blood Count no Diff Today N93.9 - Abnormal uterine and vaginal bleeding, unspecified HIV Ab/Ag Today Z20.2 - Contact with and (suspected) exposure to infections with a predominantly sexual mode of transmission Hepatitis C Antibody Reflex Today Z20.2 - Contact with and (suspected) exposure to infections with a predominantly sexual mode of transmission CT NG by PCR Today D25.9 - Leiomyoma of uterus, unspecified, N93.9 - Abnormal uterine and vaginal bleeding, unspecified, Z01.419 - Encounter for gynecological examination (general) (routine) without abnormal findings, Z11.3 - Encounter for screening for infections with a predominantly sexual mode of transmission Thyroid Stimulating Hormone Today N92.1 - Excessive and frequent menstruation with irregular cycle, N93.9 - Abnormal uterine and vaginal bleeding, unspecified US pelvic and transvaginal Today D25.9 - Leiomyoma of uterus, unspecified, N93.9 - Abnormal uterine and vaginal bleeding, unspecified Coding Level of Care Code Est Pt Prev Care 18-39y(65193) Diagnoses Encounter for well woman exam with routine gynecological exam Z01.419 Encounter for screening examination for sexually transmitted disease Z11.3 Uterine leiomyoma, unspecified location D25.9 Uterine leiomyoma location: unspecified location Vaginal discharge N89.8 Breast pain N64.4 Possible exposure to STD Z20.2
== END 2024-05-19 12:35 | disposition home or self-care (01) ==
PROVIDERS: PCP Internal Medicine; Visit Provider Advanced Practice Midwife
DX: Z01.419 Encounter for gynecological examination (general) (routine) without abnormal findings (principal); Z11.3 Encounter for screening for infections with a predominantly sexual mode of transmission; D25.9 Leiomyoma of uterus, unspecified; N89.8 Other specified noninflammatory disorders of vagina; N64.4 Mastodynia; Z20.2 Contact with and (suspected) exposure to infections with a predominantly sexual mode of transmission
CPT/HCPCS: 99395

== ENCOUNTER 2024-05-19 10:50 | Outpatient (REF) | payer OTHER, SELFPAY | END 2024-05-19 10:51 | disposition home or self-care (01) | LOC: HO.LAB 10:50 | PROVIDERS: PCP Internal Medicine; Visit Provider Advanced Practice Midwife | DX: Z13.89 Encounter for screening for other disorder (principal) ==

== ENCOUNTER 2024-05-26 13:31 | Outpatient (REF) | payer OTHER, SELFPAY | END 2024-05-26 13:32 | disposition home or self-care (01) | LOC: HO.US 13:31 | PROVIDERS: PCP Internal Medicine; Visit Provider Advanced Practice Midwife | DX: N93.9 Abnormal uterine and vaginal bleeding, unspecified (principal); D25.9 Leiomyoma of uterus, unspecified | CPT/HCPCS: 76830; 76856 ==

== ENCOUNTER 2024-07-29 12:34 | Outpatient (AMB) | payer OTHER, SELFPAY ==
--- NOTE | 2024-07-29 12:56 | A.OFFVIS_ITS ---
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 She has a history of heavy menstrual bleeding 3/4 days of regular cycles. History of tubal ligation. Currently seen by her PCP at [facility] has elevated blood pressure and kidney functions. Family history of hypertension she reports her mom of hypertension complications at age 41. She will be placed on a trial medication for her blood pressure and follow up closely by her primary care. Recent mammogram was done yesterday she reports was normal-there are no records from [facility]. Labs: 05/19/2024 TSH= 2.37, H/H= 13.4/42.3. She reports labs at [facility] this week: H&H of 12.5/38.9, iron saturation was 8, creatinine was 1.23, G FR was 58. [facility] Medical History Lower abdominal pain Lesion of right ovary History of colitis Abdominal pain BISI (generalized anxiety disorder) Mild recurrent major depression Vaginal pruritus Physical exam Mild intermittent asthma in adult without complication Pneumonia Family history of hypertension Chronic fatigue Anxiety Surgical History History of mandibular surgery History of surgery History of tubal ligation Family History Father Melanoma Mother Hypertension Alcoholism Maternal Grandfather Stroke Paternal Grandfather No problems noted. Social History Housing: Other Alcohol intake: current Alcohol intake frequency: holidays/special occasions only Patient Tobacco Use Status: Never used Tobacco e-Cigarette/Vaping Use: Never Used Second Hand Smoke Exposure: No service: No Current occupational status: employed Current occupational exposures/hazards: No Sexual orientation: Straight/Heterosexual Gender identity: Female Cognitive needs: No Hearing needs: No Vision needs: Yes Female Reproductive History Menstrual Age of Menarche: 9 Date of last menstrual period: 07/22/24 Review of Systems Const All systems reviewed & are unremarkable except as noted in HPI and below Endo Reports no additional complaints Physical Exam Const General: cooperative, healthy appearing and no acute distress Psych Appearance: well kempt Attitude: cooperative Thought process: Normal thought process present Results Reviewed Results Reviewed: [address] [address] Ultrasound Report Signed Patient: Julieth Alcala MR#: [id number] : 1990 Acct:[id number] Age/Sex: 34 / F ADM Date: 05/26/24 Loc: HO.US Attending Dr: Kayleen Rodriguez CNM Ordering Physician: Kayleen Rodriguez CNM Date of Service: 05/26/24 Procedure(s): US pelvic and transvaginal Accession Number(s): [id number] cc: Kayleen Rodriguez CNM; Nathalia Rios MD~ EXAMINATION: US PELVIS CLINICAL INFORMATION: Abnormal uterine bleeding, leiomyoma, last menstrual period 04/28/2024, patient denies pain. COMPARISON: 12/24/2022. TECHNIQUE: Ultrasound of the pelvis is performed using both transabdominal and transvaginal transducers along with Doppler. Transvaginal imaging is performed due to inadequate visualization transabdominally. FINDINGS: The anteverted uterus measures 11.3 x 4.6 x 7.3 cm. Endometrium appears abnormal with thickness of 13 mm with areas of heterogeneity and complexity as well as possible small amount of fluid. 0.4 cm myometrial cyst abuts the endometrium. 1.7 x 1.1 x 1.1 cm posterior uterine mass characteristic of a fibroid, previously 1.5 x 1.1 x 1.3 cm. No significant free fluid. Right ovary measures 3.5 x 2.0 x 3.9 cm. Left ovary measures 3.6 x 2.6 x 2.3 cm. 1.4 x 0.9 x 1.2 cm complex left ovarian complex solid/cystic mass. 1.3 x 1.2 x 0.9 cm complex right ovarian complex solid/cystic mass. US/US pelvic and transvaginal IMPRESSION: 1. Redemonstration of posterior uterine mass characteristic of a fibroid. 2. Endometrium appears abnormal with thickness of 13 mm, small amount of fluid, subendometrial cyst. 3. 1.4 cm left ovarian and 1.3 cm right ovarian complex solid/cystic masses were not identified on the prior exam. 4. Gynecologic consultation and correlation with clinical exam recommended to determine further management. Recommend followup ultrasound in 6-8 weeks. Electronically signed by: Renay Liang MD 07/25/2024 11:48 AM EST Dictated By: Renay Liang MD Signed By: <Electronically signed by Renay Liang MD in OV> 07/25/24 1148 DD/ 1334 TD/TT: 05/26/24 1415 Consumer Insights Intern: Assessment & Plan Assessment & Plan (1) Complex ovarian cyst: Code(s): N83.299 - Other ovarian cyst, unspecified side Category: Medical Plan Discussed: Ultrasound findings bilateral complex ovarian cyst possible solid component recommended follow up advised to schedule scan currently if a solid component would recommend surgical consult, MRI, and CA 125 and other lab evaluation. Discuss cycle control methods to include the Mirena IUD, or progesterone use avoiding estrogen with hypertension. She will consider and discuss it next follow up. Advised to call sooner if there is any heavy prolonged bleeding for sooner evaluation. The patient expressed understanding and agreement with the plan of care. All of her questions and concerns were addressed to the best of my ability. Follow up with primary care for hypertension. This note is constructed using voice recognition software. While every effort has been made to ensure accuracy, buildings and grounds superintendent errors may have been included. Orders: Orders US pelvic and transvaginal Today N83.299 - Other ovarian cyst, unspecified side Coding Level of Care Code Est Pt Level 3 (28818) Diagnoses Complex ovarian cyst N83.299
--- OUTSIDE RECORDS SUMMARY | 2024-07-29 14:54 | XMS_ITS | Clinical Summary ---
Author Organization [facility] Address [address] [place] [address] Care Team Providers Care Trailer Mechanic Name Role Phone Provider, Generic Primary Care Provider Unavaila ble Social History Tobacco Use Types Packs/Day Years Used Date Smoking Tobacco: Never Assessed Sex and Gender Information Value Date Recorded Sex Assigned at Female 06/13/2023 3:29 PM EST Gender Identity Female 06/13/2023 3:29 PM EST Sexual Orientation Choose not to disclose 2022 3:29 PM EST Plan of Treatment Health Maintenance Due Date Last Done Comments Hepatitis C Virus Screening 1990 HIV Screening 02/03/2001 DTaP/Tdap/Td Vaccines (1 - Tdap) 02/03/2007 Hepatitis B Vaccines (1 of 3 - 19+ 3-dose series) 02/03/2007 Pap Smear (Ages 21-65) 02/03/2009 Influenza Vaccine 02/05/2024 COVID-19 Vaccine (1 - 2023-2 5 season) 2024 HPV Vaccines Aged Out No longer eligi ble based on patient's age to complete this topic Pneumococcal Vaccine: Pediat mayra (0-5 Years) and At-Risk Patients (6 to 49 Years) Aged Out No longer eligible b ased on patient's age to complete this topic Care Teams Trailer Mechanic Relationship Specialty Start Date End Date Provider, Generic PCP - General 07/02/23
--- OUTSIDE RECORDS SUMMARY | 2024-07-29 14:54 | XMS_ITS | Encounter Summary ---
Author Organization [facility] Address [address] [place] [id number] Care Team Providers Care Duck Farmer Name Role Phone Provider, Generic Primary Care Provider Unavaila ble Encounter Details Date Type Department Care Team (Late st Contact Info) Description 06/13/2023 Scanned Document [facility] [address] [place] [address] Lisa Davenport MD [address] [place] [address] Social History Tobacco Use Types Packs/Day Years Used Date Smoking Tobacco: Never Assessed Sex and Gender Information Value Date Recorded Sex Assigned at Female 06/13/2023 3:29 PM EST Gender Identity Female 06/13/2023 3:29 PM EST Sexual Orientation Choose not to disclose 2022 3:29 PM EST documented as of this encounter Plan of Treatment Not on file documented as of this encounter Visit Diagnoses Not on filedocumented in this encounter Care Teams Duck Farmer Relationship Specialty Start Date End Date Provider, Generic PCP - General 07/02/23 documented as of this encounter
--- OUTSIDE RECORDS SUMMARY | 2024-07-29 14:54 | XMS_ITS ---
Author Name [facility] Organization Unknown Problems Problem Status Onset Date Problem Type Date of Resoluti on Source Subjective visual disturbance of both eyes active EncounterDiagnosisAct CCT
== END 2024-07-29 13:40 | disposition home or self-care (01) ==
LOC: HO.HWS 12:34
PROVIDERS: PCP Internal Medicine; Visit Provider Advanced Practice Midwife
DX: N83.299 Other ovarian cyst, unspecified side (principal)
CPT/HCPCS: 99213

== ENCOUNTER → 2024-08-11 13:42 | Outpatient (BNV) | payer OTHER, SELFPAY | PROVIDERS: PCP Internal Medicine; Visit Provider Radiology Diagnostic Radiology | DX: N83.299 Other ovarian cyst, unspecified side (principal) | CPT/HCPCS: 76830; 76856 ==

== ENCOUNTER 2024-09-01 12:45 | Outpatient (AMB) | payer OTHER, SELFPAY ==
--- NOTE | 2024-09-01 12:46 | A.OFFVIS_ITS ---
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 History of complex ovarian cyst, and heavy menstrual bleeding. She is also interested in techniques on how to gain weight she had admits to being underweight most of her life. She also reports her ferritin level was low, and wonders how to increase her iron intake. She is seen at [facility] for her primary care her labs and notes are not available today. History of hypertension, is on new medications-she does not know the name of the little white pill. [facility] Medical History (Updated 09/01/24 @ 13:10 by Kayleen Rodriguez CNM) Lower abdominal pain Lesion of right ovary History of colitis Abdominal pain BISI (generalized anxiety disorder) Mild recurrent major depression Vaginal pruritus Physical exam Mild intermittent asthma in adult without complication Pneumonia Family history of hypertension Chronic fatigue Anxiety Surgical History History of mandibular surgery History of surgery History of tubal ligation Family History Father Melanoma Mother Hypertension Alcoholism Maternal Grandfather Stroke Paternal Grandfather No problems noted. Social History Housing: Other Alcohol intake: current Alcohol intake frequency: holidays/special occasions only Patient Tobacco Use Status: Never used Tobacco e-Cigarette/Vaping Use: Never Used Second Hand Smoke Exposure: No service: No Current occupational status: employed Current occupational exposures/hazards: No Sexual orientation: Straight/Heterosexual Gender identity: Female Cognitive needs: No Hearing needs: No Vision needs: Yes Female Reproductive History Menstrual Age of Menarche: 9 Date of last menstrual period: 08/20/24 Review of Systems Const All systems reviewed & are unremarkable except as noted in HPI and below Endo Reports no additional complaints Physical Exam Const General: cooperative, healthy appearing and no acute distress Psych Appearance: well kempt Attitude: cooperative Thought process: Normal thought process present Results Reviewed Results Reviewed: [address] [address] Ultrasound Report Signed Patient: Julieth Alcala#: [id number] : 1990 Acct:[id number] Age/Sex: 34 / F ADM Date: 08/11/24 Loc: HO.US Attending Dr: Kayleen Rodriguez CNM Ordering Physician: Kayleen Rodriguez CNM Date of Service: 08/11/24 Procedure(s): US pelvic and transvaginal Accession Number(s): [id number] cc: Kayleen Rodriguez CNM; Nathalia Rios MD~ EXAMINATION: US PELVIS CLINICAL INFORMATION: Other ovarian cyst, unspecified site. COMPARISON: May 26, 2024 demonstrated uterine fibroids and complex cysts, both ovaries. TECHNIQUE: Ultrasound of the pelvis is performed using both transabdominal and transvaginal transducers along with Doppler. Transvaginal imaging is performed due to inadequate visualization transabdominally. FINDINGS: Uterus: The uterus is anteverted and measures 10 x 6 x 6 cm. Volume: 187 cc. The double wall endometrial thickness is 19 mm. There are few scattered heterogeneous nodular lesions throughout the myometrium, the most conspicuous measuring 1.5 and 0.9 cm. The cervix appears normal. Adnexa: Both ovaries are visualized. There is normal color flow to the adnexa. There is no ovarian torsion. Trace amount of free fluid in the cul-de-sac. Right ovary measures 4 x 2 x 3 cm. Volume: 14 cc. Left ovary measures 3 x 2 x 2 cm. Volume: 5 cc. US/US pelvic and transvaginal IMPRESSION: No ovarian torsion or gross ovarian cyst. Uterine fibroids. Thickened endometrial stripe. Correlated with menstrual cycle. 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 (2) Heavy menstrual bleeding: Code(s): N92.0 - Excessive and frequent menstruation with regular cycle Qualifiers: Menorrhagia type: with regular cycle Qualified Code(s): N92.0 - Excessive and frequent menstruation with regular cycle Plan: Discussed weight gain techniques and provided information on iron food sources. Plan Counseled regarding Mirena IUD option for heavy menstrual bleeding control, progesterone only. If decides to have the IUD inserted recommended to take 2 Tylenol with food and fluids 1 hour before her procedure. Mirena booklet dispensed. Side effects reviewed along with risks- benefits. Advised to call in the 1st 5 days of her menstrual cycle for insertion, not as strict role due to her history of bilateral tubal ligation. Next appointment scheduled 05/26/2025 for annual exam. The patient expressed understanding and agreement with the plan of care. All of her questions and concerns were addressed to the best of my ability. This note is constructed using voice recognition software. While every effort has been made to ensure accuracy, ocean fishing guide errors may have been included. Coding Level of Care Code Est Pt Level 3 (84758) Diagnoses Encounter to discuss test results Z71.2 Menorrhagia with regular cycle N92.0 Menorrhagia type: with regular cycle
--- OUTSIDE RECORDS SUMMARY | 2024-09-01 15:37 | XMS_ITS | Encounter Summary ---
Author Organization [facility] Address [address] [place] [address] Care Team Providers Care Hat Blocking Operator Name Role Phone Provider, Generic Primary Care Provider Unavaila ble Encounter Details Date Type Department Care Team (Late st Contact Info) Description 06/13/2023 Scanned Document [facility] [address] [place] [address] Lisa Davenport MD [address] [place] [address] Social History Tobacco Use Types Packs/Day Years [...] on filedocumented in this encounter Care Teams Hat Blocking Operator Relationship Specialty Start Date End Date Provider, Generic PCP - General 07/02/23 documented as of this encounter
--- OUTSIDE RECORDS SUMMARY | 2024-09-01 15:37 | XMS_ITS | Clinical Summary ---
Author Organization [facility] Address [address] [place] [address] Care Team Providers Care Station Worker Name Role Phone Provider, Generic Primary Care [...] 21-65) 02/03/2009 Influenza Vaccine 02/05/2024 COVID-19 Vaccine ( - 2023-2 5 season) 2024 HPV Vaccines Aged Out No longer eligi ble based on patient's age to complete this topic Pneumococcal Vaccine: Pediat mayra (0-5 Years) and At-Risk Patients (6 to 49 Years) Aged Out No longer eligible b ased on patient's age to complete this topic Care Teams Station Worker Relationship Specialty Start Date End Date Provider, Generic PCP - General 07/02/23
== END 2024-09-01 15:04 | disposition home or self-care (01) ==
PROVIDERS: PCP Internal Medicine; Visit Provider Advanced Practice Midwife
DX: Z71.2 Person consulting for explanation of examination or test findings (principal); N92.0 Excessive and frequent menstruation with regular cycle
CPT/HCPCS: 99213

== ENCOUNTER 2025-05-25 14:06 | Outpatient (AMB) | payer OTHER, SELFPAY ==
--- NOTE | 2025-05-25 14:18 | A.OFFVIS_ITS ---
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 Pelvic pain on her right side for the last week. Regular monthly menses w/HMB 3-3.5/7d. Currently is sexually active with a partner x1 year. She denies vaginal itching or irritation. STI screening offered; she accepts, prefers to have HIV and all other blood testing completed. She tries to eat healthy and stays active with exercise. Denies family history of breast, ovarian or colon cancer. Last pap smear 2022, negative. [facility] Medical History Pelvic pain Abnormal uterine bleeding (AUB) Lower abdominal pain Lesion of right ovary History of colitis Abdominal pain BISI (generalized anxiety disorder) Mild recurrent major depression Vaginal pruritus Physical exam Mild intermittent asthma in adult without complication Pneumonia Family history of hypertension Chronic fatigue Anxiety Surgical History History of mandibular surgery History of surgery History of tubal ligation Family History Father Melanoma Mother Hypertension Alcoholism Maternal Grandfather Stroke Paternal Grandfather No problems noted. Social History Housing: Other Alcohol intake: current Alcohol intake frequency: holidays/special occasions only Patient Tobacco Use Status: Never used Tobacco e-Cigarette/Vaping Use: Never Used Second Hand Smoke Exposure: No service: No Current occupational status: employed Current occupational exposures/hazards: No Sexual orientation: Straight/Heterosexual Gender identity: Female Cognitive needs: No Hearing needs: No Vision needs: Yes Female Reproductive History Menstrual Age of Menarche: 9 Duration of menses: 6-7 days Date of last menstrual period: 05/12/25 control method: permanent sterilization Permanent Sterilization: BTL Total pregnancies: 5 Full term: 2 Number of Living Children: 2 Ab induced: 3 Date of last pap smear: 02/11/23 (neg pap and hpv) History of abnormal pap smear: Yes (03/25 +hpv) Review of Systems Const All systems reviewed & are unremarkable except as noted in HPI and below Reports as per HPI Eyes Reports no additional complaints ENT Reports no additional complaints Card Reports no additional complaints Resp Reports no additional complaints GI Reports as per HPI and Reports no additional complaints Reports as per HPI Musc Reports no additional complaints Skin/Breast Reports as per HPI Neuro Reports no additional complaints Psych Reports no additional complaints Endo Reports no additional complaints Tory/Lymph Reports no additional complaints Aller/Immun Reports no additional complaints Physical Exam Vital Signs: Last Vital Signs BP 120/80 05/25/25 14:19 BMI result Body Mass Index 22.7 Const General: cooperative, healthy appearing, no acute distress, well developed and alert Orientation/consciousness: patient oriented x3 HEENT Head: Yes normal to inspection Eyes General: appearance normal, both eyes and all related structures Neck Neck: Yes normal visual inspection Thyroid: Thyroid normal Chest Chest palpation & inspection: normal inspection of the chest and other (no puckering, dimpling, peau de orange, retraction, discharge, masses) Breast/axilla inspection: normal inspection of the breasts Breast/axilla palpation: normal palpation of the breasts Resp Effort & Inspection: normal respiratory effort GI Inspection: Yes normal to inspection Palpation (GI): Soft to palpation Rectal Exam - Female: deferred General: Yes bladder normal to palpation External Female Exam: normal external appearance and normal appearance of the urethra Speculum Exam - Vagina: normal appearance of the vagina, normal palpation and normal vaginal discharge Speculum Exam - Cervix: normal appearance of the cervix and normal palpation Bimanual exam- vagina & uterus: normal bimanual exam, normal palpation, uterine size normal, bladder normal to palpation, normal palpation and non-tender Bimanual Exam- Adnexa, other: no masses and tender (slight) on the right Skin General skin exam: no rashes or lesions noted Rashes: no rashes Neuro General: patient oriented x3 Cognition (Neuro): normal cognition Extrem General: Yes normal to inspection Psych Attitude: cooperative Thought process: Normal thought process present Results AMB Urinalysis, Automated UA Leukoctes 2 Jocelin/uL Last Edit by ARMOND Wilson on 05/25/25 15:21 UA Nitrite Negative Last Edit by Jenn Tamayo [facility] on 05/25/25 15:21 UA Urobilinogen 0 mg/dL Last Edit by Jenn Tamayo, [facility] on 05/25/25 15:2 1 UA Protein 0 mg/dL Last Edit by Jenn Tamayo, [facility] on 05/25/25 15:21 UA pH 6.5 Last Edit by Jenn Tamayo, [facility] on 05/25/25 15:21 UA Blood 0 Keshav/uL Last Edit by Jenn Tamayo, [facility] on 05/25/25 15:21 UA Specific Oriska 1.015 Last Edit by Jenn Tamayo [facility] on 05/25/25 15:21 UA Ketone Negative Last Edit by Jenn Tamayo [facility] on 05/25/25 15:21 UA Bilirubin 0 mg/dL Last Edit by Jenn Tamayo [facility] on 05/25/25 15:21 UA Glucose 0 mg/dL Last Edit by Jenn Tamayo [facility] on 05/25/25 15:21 AMB Test Urine AMB Test Urine Negative Last Edit by Jenn Tamayo [facility] on 05/25/25 15:21 Assessment & Plan Assessment & Plan (1) Encounter for well woman exam with routine gynecological exam: Code(s): Z01.419 - Encounter for gynecological examination (general) (routine) without abnormal findings Category: Medical Plan: Discussed: Current recommendations for pap smears per ASCCP guidelines. Breast awareness and periodic breast exams. Maintain a healthy lifestyle including a well balanced diet and routine exercise. Patient verbalizes understanding and agrees to the plan of care. She was given opportunity to ask questions and all questions were answered to the best of my ability. 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 This note is constructed using voice recognition software. While every effort has been made to ensure accuracy, meat stringer errors may have been included. (2) Abnormal uterine bleeding (AUB): Code(s): N93.9 - Abnormal uterine and vaginal bleeding, unspecified Category: Medical Plan: Workup for AUB to include pelvic ultrasound, cultures. Cycle control options reviewed today. Follow up with decision on progesterone only pills versus Mirena IUD at her follow up. The patient expressed understanding and agreement with the plan of care. All of her questions and concerns were addressed to the best of my ability. (3) Pelvic pain: Code(s): R10.20 - Pelvic and perineal pain unspecified side Category: Medical Plan: Plan pelvic ultrasound for further evaluation. Pelvic rest reviewed, pelvic warnings and when to call and be seen for immediate concerns, [id number] self-help comfort measures such as Tylenol or ibuprofen p.r.n. per manufacture's recommendation. The patient expressed understanding and agreement with the plan of care. All of her questions and concerns were addressed to the best of my ability. Follow up pending results. (4) Vaginal itching: Code(s): N89.8 - Other specified noninflammatory disorders of vagina Plan: BV panel obtained await results for final plan of care. Rx sent to pharmacy. The patient expressed understanding and agreement with the plan of care. All of her questions and concerns were addressed to the best of my ability. Plan Total time I personally spent on visit and management today: ?20 minutes. Time spent included review of pertinent office notes in the electronic health record; review of laboratory and imaging results; review of personal family medical history; performing physical exam; discussing diagnosis and plan of care with the patient; documenting the encounter in the EMR. This note is constructed using voice recognition software. While every effort has been made to ensure accuracy, meat stringer errors may have been included. Orders: Orders US pelvic and transvaginal Today N93.9 - Abnormal uterine and vaginal bleeding, unspecified Complete Blood Count no Diff Today N93.9 - Abnormal uterine and vaginal bleeding, unspecified Syphilis Screen Today Z20.2 - Contact with and (suspected) exposure to in fections with a predominantly sexual mode of transmission CT NG by PCR Vag/Cerv Today N93.9 - Abnormal uterine and vaginal bleeding, unspecified, R10.20 - Pelvic and perineal pain unspecified side AMB Urinalysis Automated Today R10.20 - Pelvic and perineal pain unspecified side Urine Culture Today R10.20 - Pelvic and perineal pain unspecified side AMB HCG Urine Test Today N93.9 - Abnormal uterine and vaginal bleeding, unspecified, R10.20 - Pelvic and perineal pain unspecified side Thyroid Stimulating Hormone Today N92.1 - Excessive and frequent menstruation with irregular cycle, N93.9 - Abnormal uterine and vaginal bleeding, unspecified HIV Ab/Ag Today Z20.2 - Contact with and (suspected) exposure to infections with a predominantly sexual mode of transmission Hepatitis C Antibody Reflex Today Z20.2 - Contact with and (suspected) exposure to infections with a predominantly sexual mode of transmission Hepatitis B Core Antibody Today Z20.2 - Contact with and (suspected) exposure to infections with a predominantly sexual mode of transmission Bacterial Vaginosis Panel Today N93.9 - Abnormal uterine and vaginal bleeding, unspecified, R10.20 - Pelvic and perineal pain unspecified side Medications: New clotrimazole-betamethasone 1-0.05 % apply externally a thin coat to the area 1 appl topical BID 45 grams 0RF itching 7 days Coding Level of Care Code Est Pt Level 2 (13974) Est Pt Prev Care 18-39y(79689) Diagnoses Encounter for well woman exam with routine gynecological exam Z01.419 Abnormal uterine bleeding (AUB) N93.9 Pelvic pain R10.20 Vaginal itching N89.8
[2025-05-25 14:19] VITALS: BP 120/80; BMI 22.7
--- OUTSIDE RECORDS SUMMARY | 2025-05-26 02:31 | XMS_ITS | Clinical Summary ---
Author Organization [facility] Address [address] [place] [address] Care Team Providers Care Security Officer Supervisor Name Role Phone Provider, Generic Primary Care Provider Unavaila ble Social History Tobacco Use Types Packs/Day Years Used Date Smoking Tobacco: Never Assessed Comments Unknown Sex and Gender Information Value Date Recorded Sex Assigned at Female 06/13/2023 3:29 PM EST Legal Sex Female 3:25 PM EST Gender Identity Female 06/13/2023 3:29 PM EST Sexual Orientation Choose not to disclose 2022 3:29 PM EST Plan of Treatment Health Maintenance Due Date Last Done Comments Hepatitis C Virus Screening 1990 HIV Screening 02/03/2001 DTaP/Tdap/Td Vaccines (1 - Tdap) 02/03/2007 Hepatitis B Vaccines (1 of 3 - 19+ 3-dose series) 02/03/2007 Pap Smear (Ages 21-65) 02/03/2009 Influenza Vaccine 2025 COVID-19 Vaccine (1 - 2023-2 5 season) 2025 HPV Vaccines (No Doses Required) Completed Pneumococcal Vaccine: Pediat mayra (0-5 Years) and At-Risk Patients (6 to 49 Years) Aged Out No longer eligible b ased on patient's age to complete this topic Insurance [facility] Care Teams Security Officer Supervisor Relationship Specialty Start Date End Date Provider, Generic PCP - General 07/02/23
--- OUTSIDE RECORDS SUMMARY | 2025-05-26 02:31 | XMS_ITS | Encounter Summary ---
Author Organization [facility] Address [address] [place] [address] Care Team Providers Care Water Valve Mechanic Name Role Phone Provider, Generic Primary Care Provider Unavaila ble Encounter Details Date Type Department Care Team (Late st Contact Info) Description 06/13/2023 Scanned Document [facility] [address] [place] [address] Lisa Davenport MD [address] [place] [address] Social History Tobacco Use Types Packs/Day Years [...] on filedocumented in this encounter Care Teams Water Valve Mechanic Relationship Specialty Start Date End Date Provider, Generic PCP - General 07/02/23 documented as of this encounter
--- OUTSIDE RECORDS SUMMARY | 2025-05-26 02:31 | XMS_ITS ---
Author Name [facility] Organization Unknown Problems Problem Status Onset Date Problem Type Date of Resoluti on Source Subjective visual disturbance of both eyes active EncounterDiagnosisAct HHCCT Care Team Organization Name Specialty Phone Email Start Date End Da te [facility] Generic Provider Primary Care 12/29/202312/28 [facility] JOHN PASCUAL Primary Care 03/18/[address] [place] [employer] [facility]
== END 2025-05-25 15:15 | disposition home or self-care (01) ==
LOC: HO.HWS 14:07
PROVIDERS: PCP Internal Medicine; Visit Provider Advanced Practice Midwife
DX: Z01.419 Encounter for gynecological examination (general) (routine) without abnormal findings (principal); N93.9 Abnormal uterine and vaginal bleeding, unspecified; R10.21 Pelvic and perineal pain right side; N89.8 Other specified noninflammatory disorders of vagina; Z32.02 Encounter for pregnancy test, result negative
CPT/HCPCS: 99212; 99395; 99459

== ENCOUNTER 2025-05-25 14:06 | Outpatient (REF) | payer OTHER, SELFPAY | END 2025-05-25 14:07 | disposition home or self-care (01) | LOC: HO.LNP 14:06 | PROVIDERS: PCP Internal Medicine; Visit Provider Advanced Practice Midwife | DX: Z01.419 Encounter for gynecological examination (general) (routine) without abnormal findings (principal); N93.9 Abnormal uterine and vaginal bleeding, unspecified; R10.20 Pelvic and perineal pain unspecified side; N89.8 Other specified noninflammatory disorders of vagina | CPT/HCPCS: 81003; 81025 ==

== ENCOUNTER 2025-05-25 14:54 | Outpatient (REF) | payer OTHER, SELFPAY ==
[2025-05-25 16:14] LABS: Hematocrit 41.9 % (37.0-47.0); Hemoglobin 13.5 g/dl (12.0-16.0); Mean Corpuscular HGB Conc 32.2 g/dl (31.0-35.0); Mean Corpuscular Hemoglobin 27.6 pg (27.0-33.0); Mean Corpuscular Volume 85.5 fL (80.0-98.0); NRBC Abs Auto 0.000 X10*3/uL (0.0-0.012); NRBC Pct Auto 0.0 /100WBC (0.0-0.2); Platelet Count 293 X10*3/uL (160-400); Red Blood Count 4.90 X10*6/uL (4.20-5.50); White Blood Count 9.1 X10*3/uL (4.8-10.8)
[2025-05-25 17:31] LABS: Thyroid Stimulating Hormone 2.79 uIU/mL (0.32-4.0)
[2025-05-26 03:13] LABS: Bacterial Vaginosis PCR NEGATIVE (Negative); Candida Group PCR DETECTED (Not Detect); Candida glab krusei PCR NOT DETECTED (Not Detect); Trichomonas vaginalis PCR NOT DETECTED (Not Detect)
[2025-05-26 03:44] LABS: CT PCR NOT DETECTED (Not Detect.); NG PCR NOT DETECTED (Not Detect.)
[2025-05-26 08:39] LABS: Syphilis Screen Nonreactive (Nonreactive)
[2025-05-26 09:05] LABS: HBc Num1 0.08 S/CO (0.00-0.79); HIV Num 1 0.07 S/CO (0.00-0.99); ~HepC Num1 0.25 S/CO (0.00-0.79); ~Hepatitis C Antibody Nonreactive (Nonreactive)
== END 2025-05-25 14:55 | disposition home or self-care (01) ==
LOC: HO.LAB 14:54
PROVIDERS: Visit Provider Advanced Practice Midwife
DX: N92.1 Excessive and frequent menstruation with irregular cycle (principal); N93.9 Abnormal uterine and vaginal bleeding, unspecified; R10.20 Pelvic and perineal pain unspecified side; Z11.4 Encounter for screening for human immunodeficiency virus [HIV]; Z13.29 Encounter for screening for other suspected endocrine disorder; Z20.2 Contact with and (suspected) exposure to infections with a predominantly sexual mode of transmission
CPT/HCPCS: 36415; 81515; 84443; 85027; 86704; 86780; 86803; 87086; 87389; 87491; 87591

== ENCOUNTER 2025-06-07 15:34 | Outpatient (REF) | payer OTHER, SELFPAY ==
--- NOTE | ~2025-06-07 | US_ITS ---
EXAMINATION: US PELVIS CLINICAL INFORMATION: Abnormal uterine and vaginal bleeding. LMP = 05/12/2025. History of tubal ligation. COMPARISON: Numerous priors, most recently 08/11/2024. TECHNIQUE: Ultrasound of the pelvis is performed using both transabdominal and transvaginal transducers along with Doppler. Transvaginal imaging is performed due to inadequate visualization transabdominally. FINDINGS: Uterus: The uterus is anteverted, anteflexed and measures 12.0 x 4.8 x 7.6 cm. The cervix is normal in appearance with small nabothian cysts present. The double wall endometrial thickness is 18 mm. There are tiny cystic areas within the endometrium, and there is a subendometrial cyst in the mid aspect dorsally measuring 4 mm. The uterus is smooth in contour and has heterogeneous myometrial echogenicity. There are 2 small fibroids visualized: -There is a right subserosal mid uterine segment fibroid measuring 1.4 x 1.1 x 1.0 cm, unchanged from the prior. -There is an intramural right mid uterine segment fibroid measuring 1.2 x 1.2 x 1.1 cm (previously measuring 0.7 x 0.9 x 0.7 cm). Adnexa: Both ovaries are visualized. There is normal color flow to the adnexa. There is no ovarian torsion. There is no pelvic ascites or fluid collection. There are no adnexal masses. Right ovary measures 2.7 x 2.2 x 2.1 cm. Volume = 6.5 mL. There is an oval hypoechoic focus within the ovarian stroma measuring 1.4 x 0.7 x 1.1 cm. Otherwise normal appearance sonographically. Left ovary measures 2.3 x 1.0 x 1.8 cm. Volume = 2.2 mL. Normal sonographic appearance. US/US pelvic and transvaginal IMPRESSION: 1. Somewhat thickened endometrium measuring 18 mm. There are tiny cystic areas within the endometrium, and a solitary 4 mm subendometrial cyst is present. There is also heterogeneity of the myometrium. Findings could represent adenomyosis. Endometrial hyperplasia is also a diagnostic possibility. 2. There are 2 small myometrial fibroids on the right as detailed. The smaller has mildly increased in size since 08/11/2024. 3. There is an oval hypoechoic focus within the right ovary measuring 1.4 x 0.7 x 1.1 cm. This is nonspecific and was not visualized on 08/11/2024. A ovarian solid mass such as a fibroma or thecoma is not excluded. 4. Given the above findings, MRI of the pelvis may be warranted. Electronically signed by: Caludio Leblanc MD 06/07/2025 05[facility]
--- OUTSIDE RECORDS SUMMARY | 2025-06-07 17:06 | XMS_ITS | Encounter Summary ---
Author Organization [facility] Address [address] [place] [address] Care Team Providers Care Skating Carhop Name Role Phone Provider, Generic Primary Care Provider Unavaila ble Encounter Details Date Type Department Care Team (Late st Contact Info) Description 06/13/2023 Scanned Document [facility] [address] [place] [address] Lisa Davenport MD [address] [place] [address] Social History Tobacco Use Types Packs/Day Years [...] on filedocumented in this encounter Care Teams Skating Carhop Relationship Specialty Start Date End Date Provider, Generic PCP - General 07/02/23 documented as of this encounter
--- OUTSIDE RECORDS SUMMARY | 2025-06-07 17:06 | XMS_ITS | Clinical Summary ---
Author Organization [facility] Address [address] [place] [address] Care Team Providers Care Activity Assistant Name Role Phone Provider, Generic Primary Care [...] patient's age to complete this topic Insurance [facility] Care Teams Activity Assistant Relationship Specialty Start Date End Date Provider, Generic PCP - General 07/02/23
== END 2025-06-07 15:35 | disposition home or self-care (01) ==
LOC: HO.US 15:34
PROVIDERS: Visit Provider Advanced Practice Midwife
DX: N93.9 Abnormal uterine and vaginal bleeding, unspecified (principal)
CPT/HCPCS: 76830; 76856

== ENCOUNTER → 2025-06-07 15:36 | Outpatient (BNV) | payer OTHER, SELFPAY | PROVIDERS: Visit Provider Radiology Diagnostic Radiology | DX: N85.00 Endometrial hyperplasia, unspecified (principal); D25.9 Leiomyoma of uterus, unspecified | CPT/HCPCS: 76830; 76856 ==

== ENCOUNTER 2025-06-15 09:09 | Outpatient (AMB) | payer BC, SELFPAY ==
[2025-06-15 09:13] VITALS: BMI 22.5
--- NOTE | 2025-06-15 09:13 | MHC.OFFVIS ---
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 Right-sided pain occurs when stretching or with tight clothing intermittently. [facility], [facility] Medical History Ovarian mass Pelvic pain Abnormal uterine bleeding (AUB) Lower abdominal pain Lesion of right ovary History of colitis Abdominal pain BISI (generalized anxiety disorder) Mild recurrent major depression Vaginal pruritus Physical exam Mild intermittent asthma in adult without complication Pneumonia Family history of hypertension Chronic fatigue Anxiety Surgical History History of mandibular surgery History of surgery History of tubal ligation Family History Father Melanoma Mother Hypertension Alcoholism Maternal Grandfather Stroke Paternal Grandfather No problems noted. Social History Housing: Other Alcohol intake: current Alcohol intake frequency: holidays/special occasions only Patient Tobacco Use Status: Never used Tobacco e-Cigarette/Vaping Use: Never Used Second Hand Smoke Exposure: No service: No Current occupational status: employed Current occupational exposures/hazards: No Sexual orientation: Straight/Heterosexual Gender identity: Female Cognitive needs: No Hearing needs: No Vision needs: Yes Female Reproductive History Menstrual Age of Menarche: 9 Review of Systems Const All systems reviewed & are unremarkable except as noted in HPI and below Endo Reports no additional complaints Physical Exam Vital Signs: BMI result Body Mass Index 22.5 Const General: cooperative, healthy appearing and no acute distress Psych Appearance: well kempt Attitude: cooperative Thought process: Normal thought process present Results Reviewed Results Reviewed: [address] [address] Ultrasound Report Signed Patient: Julieth Alcala MR#: [id number] : 1990 Acct:[id number] Age/Sex: 35 / F ADM Date: 06/07/25 Loc: HO.US Attending Dr: Kayleen Rodriguez CNM Ordering Physician: Kayleen Rodriguez CNM Date of Service: 06/07/25 Procedure(s): US pelvic and transvaginal Accession Number(s): [id number] cc: Kayleen Rodriguez CNM; Physician,Unknown ~ Reason for Exam: N93.9 - Abnormal uterine and vaginal bleeding, unspecified EXAMINATION: US PELVIS CLINICAL INFORMATION: Abnormal uterine and vaginal bleeding. LMP = 05/12/2025. History of tubal ligation. COMPARISON: Numerous priors, most recently 08/11/2024. TECHNIQUE: Ultrasound of the pelvis is performed using both transabdominal and transvaginal transducers along with Doppler. Transvaginal imaging is performed due to inadequate visualization transabdominally. FINDINGS: Uterus: The uterus is anteverted, anteflexed and measures 12.0 x 4.8 x 7.6 cm. The cervix is normal in appearance with small nabothian cysts present. The double wall endometrial thickness is 18 mm. There are tiny cystic areas within the endometrium, and there is a subendometrial cyst in the mid aspect dorsally measuring 4 mm. The uterus is smooth in contour and has heterogeneous myometrial echogenicity. There are 2 small fibroids visualized: -There is a right subserosal mid uterine segment fibroid measuring 1.4 x 1.1 x 1.0 cm, unchanged from the prior. -There is an intramural right mid uterine segment fibroid measuring 1.2 x 1.2 x 1.1 cm (previously measuring 0.7 x 0.9 x 0.7 cm). Adnexa: Both ovaries are visualized. There is normal color flow to the adnexa. There is no ovarian torsion. There is no pelvic ascites or fluid collection. There are no adnexal masses. Right ovary measures 2.7 x 2.2 x 2.1 cm. Volume = 6.5 mL. There is an oval hypoechoic focus within the ovarian stroma measuring 1.4 x 0.7 x 1.1 cm. Otherwise normal appearance sonographically. Left ovary measures 2.3 x 1.0 x 1.8 cm. Volume = 2.2 mL. Normal sonographic appearance. US/US pelvic and transvaginal IMPRESSION: 1. Somewhat thickened endometrium measuring 18 mm. There are tiny cystic areas within the endometrium, and a solitary 4 mm subendometrial cyst is present. There is also heterogeneity of the myometrium. Findings could represent adenomyosis. Endometrial hyperplasia is also a diagnostic possibility. 2. There are 2 small myometrial fibroids on the right as detailed. The smaller has mildly increased in size since 08/11/2024. 3. There is an oval hypoechoic focus within the right ovary measuring 1.4 x 0.7 x 1.1 cm. This is nonspecific and was not visualized on 08/11/2024. A ovarian solid mass such as a fibroma or thecoma is not excluded. 4. Given the above findings, MRI of the pelvis may be warranted. 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 Somewhat thickened endometrium measuring 18 mm. There are tiny cystic areas within the endometrium, and a solitary 4 mm subendometrial cyst is present. There is also heterogeneity of the myometrium. Findings could represent adenomyosis. Endometrial hyperplasia is also a diagnostic possibility. 2. There are 2 small myometrial fibroids on the right as detailed. The smaller has mildly increased in size since 08/11/2024. 3. There is an oval hypoechoic focus within the right ovary measuring 1.4 x 0.7 x 1.1 cm. This is nonspecific and was not visualized on 08/11/2024. A ovarian solid mass such as a fibroma or thecoma is not excluded. 4. Given the above findings, MRI of the pelvis may be warranted. Discussed ultrasound findings in detail, recommended MRI for further evaluation of right ovary. Advised to call if any increase or changes pain on the right side. Prior approval will be required. The patient expressed understanding and agreement with the plan of care. All of her questions and concerns were addressed to the best of my ability. (2) Abnormal uterine bleeding (AUB): Code(s): N93.9 - Abnormal uterine and vaginal bleeding, unspecified Category: Medical Plan Discussed: Ultrasound findings as noted above. Endometrial cyst removal recommended with hysteroscopy procedure. Preprocedural anticipatory guidance reviewed. Advised appointment to be made with Dr. Valadez for consult. The patient expressed understanding and agreement with the plan of care. All of her questions and concerns were addressed to the best of my ability. This note is constructed using voice recognition software. While every effort has been made to ensure accuracy, terrazzo layer errors may have been included. Orders: Orders MR pelvis wo/w con Today N83.8 - Other noninflammatory disorders of ovary, fallopian tube and broad ligament Coding Level of Care Code Est Pt Level 3 (43299) Diagnoses Ovarian mass N83.8 Abnormal uterine bleeding (AUB) N93.9
--- NOTE | 2025-06-15 09:13 | MHC.OFFVIS ---
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 Operations Director Required: No Information Interpreted: non-clinical & clinical Accompanied by: Self / Same As Patient Allergies No Known Allergies Allergy (Verified 06/15/25 09:15) Medication List - Last Reconciled 06/15/25 by Talia Sullivan LPN albuterol sulfate 90 mcg/actuation (ProAir HFA) 2 puffs inhalation Q4-6H PRN 30 days clotrimazole-betamethasone 1-0.05 % 1 appl topical BID 7 days lisinopril 5 mg PO DAILY 90 days Is last menstrual period known: Yes Last menstrual period: 06/09/25 Do you need a note to return to daycare/school/sports/work: No PFSH Medical History Pelvic pain Abnormal uterine bleeding (AUB) Lower abdominal pain Lesion of right ovary History of colitis Abdominal pain BISI (generalized anxiety disorder) Mild recurrent major depression Vaginal pruritus Physical exam Mild intermittent asthma in adult without complication Pneumonia Family history of hypertension Chronic fatigue Anxiety Surgical History History of mandibular surgery History of surgery History of tubal ligation Family History Father Melanoma Mother Hypertension Alcoholism Maternal Grandfather Stroke Paternal Grandfather No problems noted. Social History Housing: Other Alcohol intake: current Alcohol intake frequency: holidays/special occasions only Patient Tobacco Use Status: Never used Tobacco e-Cigarette/Vaping Use: Never Used Second Hand Smoke Exposure: No service: No Current occupational status: employed Current occupational exposures/hazards: No Sexual orientation: Straight/Heterosexual Gender identity: Female Cognitive needs: No Hearing needs: No Vision needs: Yes Female Reproductive History Menstrual Age of Menarche: 9 Date of last menstrual period: 06/09/25 control method: permanent sterilization Total pregnancies: 4 Number of Living Children: 2 Ab induced: 2 Coding
== END 2025-06-15 09:46 | disposition home or self-care (01) ==
LOC: HO.HWS 09:09
PROVIDERS: PCP Internal Medicine; Visit Provider Advanced Practice Midwife
DX: N83.8 Other noninflammatory disorders of ovary, fallopian tube and broad ligament (principal); N93.9 Abnormal uterine and vaginal bleeding, unspecified
CPT/HCPCS: 99213

== ENCOUNTER 2025-06-20 09:30 | Outpatient (AMB) | payer BC, SELFPAY ==
--- NOTE | 2025-06-20 09:41 | A.OFFVIS_ITS ---
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 The following workup was done.: H&H= 13.5/41.2 TSH, GC and chlamydia were negative. Co testing was done in 02/26 was negative. Pelvic ultrasound showed the following: IMPRESSION: 1. Somewhat thickened endometrium measuring 18 mm. There are tiny cystic areas within the endometrium, and a solitary 4 mm subendometrial cyst is present. There is also heterogeneity of the myometrium. Findings could represent adenomyosis. Endometrial hyperplasia is also a diagnostic possibility. 2. There are 2 small myometrial fibroids on the right as detailed. The smaller has mildly increased in size since 08/11/2024. 3. There is an oval hypoechoic focus within the right ovary measuring 1.4 x 0.7 x 1.1 cm. This is nonspecific and was not visualized on 08/11/2024. A ovarian solid mass such as a fibroma or thecoma is not excluded. 4. Given the above findings, MRI of the pelvis may be warranted. [facility] Medical History Ovarian mass Pelvic pain Abnormal uterine bleeding (AUB) Lower abdominal pain Lesion of right ovary History of colitis Abdominal pain BISI (generalized anxiety disorder) Mild recurrent major depression Vaginal pruritus Physical exam Mild intermittent asthma in adult without complication Pneumonia Family history of hypertension Chronic fatigue Anxiety Surgical History History of mandibular surgery History of surgery History of tubal ligation Family History Father Melanoma Mother Hypertension Alcoholism Maternal Grandfather Stroke Paternal Grandfather No problems noted. 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 Current occupational exposures/hazards: No Sexually active: Yes Sexual orientation: Straight/Heterosexual Gender identity: Female Cognitive needs: No Hearing needs: No Vision needs: Yes Female Reproductive History Menstrual Age of Menarche: 9 Duration of menses: 3-5 days Date of last menstrual period: 06/10/25 control method: permanent sterilization Total pregnancies: 4 Full term: 2 Ab induced: 2 Date of last pap smear: 02/13/23 Review of Systems Card Reports as per HPI and Reports no additional complaints Resp Reports as per HPI and Reports no additional complaints GI Reports as per HPI and Reports no additional complaints Reports as per HPI Physical Exam Vital Signs: Last Vital Signs BP 122/74 06/20/25 09:42 BMI result Body Mass Index 22.5 Const General: cooperative, healthy appearing and comfortable Resp Effort & Inspection: normal respiratory effort Auscultation: clear to auscultation bilaterally Percussion: percussion normal Cardio Palpation: normal PMI Rate: regular rate Rhythm: regular rhythm Heart sounds: no murmurs and no rubs Peripheral pulses: Peripheral pulses 2+ throughout GI Inspection: Yes normal to inspection Palpation (GI): Soft to palpation, nontender, no guarding, not rigid and No hepatosplenomegaly present Percussion: Yes normal to percussion Auscultation: normal bowel sounds Rectal Exam - Female: deferred Assessment & Plan Assessment & Plan (1) Ovarian mass: Code(s): N83.8 - Other noninflammatory disorders of ovary, fallopian tube and broad ligament Category: Medical Plan: Discussed with the patient the finding on ultrasound, recommended pelvic MRI, ordered urgently. Instructions given the patient to schedule it week MRI follow-up appointment (2) Abnormal uterine bleeding (AUB): Code(s): N93.9 - Abnormal uterine and vaginal bleeding, unspecified Category: Medical Plan: Discussed with the patient the workup done so far, will proceed with endometrial sampling to rule out endometrial pathology check the results and treat accordingly (3) Abnormal ultrasound of endometrium: Code(s): R93.5 - Abnormal findings on diagnostic imaging of other abdominal regions, including retroperitoneum Category: Medical Plan: Discussed with the patient the finding on ultrasound showing abnormal endometrium. Recommended to the patient that the next step is an endometrial sampling via hysteroscopy D&C possible polypectomy versus endometrial biopsy to r/o endometrial pathology including hyperplasia or cancer. All the pros and cons risks and benefits of each approach were discussed with the patient, endometrial biopsy being less invasive, office procedure with less sensitivity and inability diagnose a polyp and removal versus hysteroscopy done under anesthesia more invasive more sensitive to endometrial cancer and possibility of diagnosing and endometrial polyp with the possibility of polypectomy. All questions were answered pt verbalized understanding and decided to proceed with hysteroscopy D&C possible polypectomy/myomectomy. Discussed with the patient the procedure , all benefits and risks including but not limited to inability to complete the procedure , insufficient endometrial tissue for a complete evaluation of the endometrial cavity , bleeding, infection, possible need for blood transfusion with all its risk ( HIV,syphilis, Hepatitis, anaphylaxis shock, others..), injury to bladder, rectum, possible need for laparoscopy/laparotomy or hysterectomy. The patient verbalized understanding and signed the consent. Instructions given the patient to stay NPO after midnight the day prior to the procedure and to take only the specific medication (s) discussed the morning of the surgical procedure and to schedule a 2 week postoperative appointment (4) Uterine myoma: Code(s): D25.9 - Leiomyoma of uterus, unspecified Category: Medical Qualifiers: Uterine leiomyoma location: unspecified location Qualified Code(s): D25.9 - Leiomyoma of uterus, unspecified Plan: Discussed with the patient the findings on pelvic ultrasound & the risk of myosarcoma; in addition reviewed with the patient that malignancy and pre malignancy cannot be ruled out without hysterectomy for pathological evaluation ; furthermore, explained to the patient the limitation of pelvic ultrasound and endometrial biopsy in the setting. Discussed with the patient the options of treatment including expectant management versus hysterectomy; the pros and cons, risks benefits of each approach were discussed with the patient including the fact that in cases of myosarcoma, surgical treatment can lead to early diagnosis and positively affects the prognosis; after further discussion, the patient decided to proceed with expectant management. Will repeat pelvic ultrasound periodically. Inst ructions given to patient to call in case any of the following occurs: pressure symptoms, abnormal uterine bleeding, pelvic pain; and to schedule a six-months pelvic ultrasound (order placed) and a follow-up appointment . All questions answered, the patient verbalized understanding and agreed with the plan . Orders: Orders MR pelvis wo/w con Today N83.299 - Other ovarian cyst, unspecified side US pelvic and transvaginal 6 Months D25.9 - Leiomyoma of uterus, unspecified Coding Level of Care Code Est Pt Level 3 (25151) Diagnoses Ovarian mass N83.8 Abnormal uterine bleeding (AUB) N93.9 Abnormal ultrasound of endometrium R93.5 Uterine leiomyoma, unspecified location D25.9 Uterine leiomyoma location: unspecified location
[2025-06-20 09:42] VITALS: BP 122/74; BMI 22.5
== END 2025-06-20 10:27 | disposition home or self-care (01) ==
LOC: HO.HWS 09:30
PROVIDERS: PCP Internal Medicine; Visit Provider Obstetrics & Gynecology
DX: N83.8 Other noninflammatory disorders of ovary, fallopian tube and broad ligament (principal); N93.9 Abnormal uterine and vaginal bleeding, unspecified; R93.5 Abnormal findings on diagnostic imaging of other abdominal regions, including retroperitoneum; D25.9 Leiomyoma of uterus, unspecified
CPT/HCPCS: 99213